=== PATIENT | female | born 1960 | race Caucasian/White ===

== ENCOUNTER → 2020-11-13 08:49 | Outpatient (CLI) | payer OTHER, SELFPAY ==
[2020-11-13 16:23] LABS: SARS-CoV-2 RNA PCR Negative
== END ==
PROVIDERS: PCP Family Medicine; Visit Provider Internal Medicine Gastroenterology
DX: Z01.812 Encounter for preprocedural laboratory examination (principal); Z20.822 Contact with and (suspected) exposure to COVID-19
CPT/HCPCS: C9803; U0003; U0005

== ENCOUNTER 2021-03-05 08:49 | Outpatient (CLI) | payer OTHER, SELFPAY ==
--- NOTE | ~2021-03-05 | MM_ITS ---
EXAMINATION: MM screening [facility] BI w linnea HISTORY: Screening mammogram TECHNIQUE: Craniocaudal and mediolateral oblique 3-D tomosynthesis images were obtained and synthetic 2-D images were generated. CAD analysis was submitted and interpreted. COMPARISON: 03/01/2017, 01/30/2016, 06/26/2014 BREAST PARENCHYMAL COMPOSITION: There are scattered areas of fibroglandular density. FINDINGS: A stable mass of the lower inner left breast is considered benign given the lack of interva l change. There is no evidence of suspicious mass, calcification, or architectural distortion to sugg est malignancy in either breast. There has been no suspicious interval change. IMPRESSION: 1. No mammographic evidence of malignancy. 2. Recommend routine screening mammography in one year. BI-RADS Category 2: Benign finding(s). Reviewed, dictated and finalized at location A.
--- NOTE | ~2021-03-05 | DEXA_ITS ---
Bone Density Report Name: Ivy Snyder Age: 60 Sex: Female Ethnicity: White Date of : 1960 Indication: hyperparathyroidism; postmenopausal Referring Provider: DANIEL NASH Study: Bone densitometry was performed. Exam Date: March 05, 2021 Accession number: [id number] Bone Density: Region BMD T-score Z-score Classification AP Spine (L1-L4) 1.004 -0.4 1.0 Normal Femoral Neck (Left) 0.730 -1.1 0.2 Osteopenia Total Hip (Left) 0.969 0.2 1.2 Normal Total Hip Bilateral Avg 0.936 -0.1 0.9 Normal Femoral Neck (Right) 0.769 -0.7 0.5 Normal Total Hip (Right) 0.902 -0.3 0.6 Normal World Health Organization criteria for BMD impression classify patients as: Normal (T-score at or above -1.0), Osteopenia (T-score between -1.0 and -2.5), or Osteoporosis (T-score at or below -2.5). 10-year Fracture Risk(1): Major Osteoporotic Fracture 6.7% Hip Fracture 0.4% Reported Risk Factors: [place] (), Neck BMD=0.730, BMI=34.3 (1) FRAX(R) Version 3.08. Fracture probability calculated for an untreated patient. Fracture probability may be lower if the patient has received treatment. Previous Exams: Region Exam Age BMD T-score BMD Change BMD Change Date g/cm2 vs Baseline vs Previous AP Spine(L1-L4) 03/05/2021 60 1.004 -0.4 -0.115(-10.3%) -0.027(-2.6%)* 06/26/2014 54 1.031 -0.1 -0.088(-7.8%)# -0.088(-7.8%)# 07/12/2012 52 1.119 0.7 Total Hip(Left) 03/05/2021 60 0.969 0.2 -0.072(-7.0%)# -0.024(-2.4%) 06/26/2014 54 0.993 0.4 -0.049(-4.7%)# -0.049(-4.7%)# 07/12/2012 52 1.042 0.8 Total Hip(Right) 03/05/2021 60 0.902 -0.3 -0.106(-10.5%) -0.067(-6.9%)* 06/26/2014 54 0.969 0.2 -0.040(-3.9%)# -0.040(-3.9%)# 07/12/2012 52 1.008 0.5 *Denotes significance at 95% confidence level, LSC for AP Spine = 0.022 g/cm2, LSC for Total Hip = 0.027 g/cm2 Clinical Information Provided by Patient: Has the following medical conditions: Hyperparathyroidism Patient maximum height was 64 Menopause Age: 52 No regular weight bearing exercise Drinks caffeinated beverages Onset of menses at age 14 Number of children 2 Impression: The patient has low bone mass, based on the Left Femoral Neck T-score. The patient has an estimated ten-year risk of hip fracture of 0.4% and an estimated ten-year risk of major fracture of 6.7%, based on the WHO FRAX algorithm. The BMD for the AP Spine(L1-L4) decreased, changing by -2.6% [facility]
== END 2021-03-05 08:50 | disposition home or self-care (01) ==
LOC: ANHIMG 08:51
PROVIDERS: PCP Family Medicine; Visit Provider Family Medicine
DX: Z12.31 Encounter for screening mammogram for malignant neoplasm of breast (principal); Z78.0 Asymptomatic menopausal state; E21.0 Primary hyperparathyroidism; M85.852 Other specified disorders of bone density and structure, left thigh
CPT/HCPCS: 77063; 77067; 77080

== ENCOUNTER 2021-06-17 00:21 | Day surgery (SDC) | payer OTHER, SELFPAY ==
[2021-05-29 11:48] VITALS: BMI 34.0
--- NOTE | 2021-06-16 16:27 | WPDANESEPPF ---
Anes - Initial Pre Proc Eval Procedure: Operation Date: 06/17/21 08:00 Proposed Procedures p Screening Colonoscopy - Chao Sales MD Date/Time: 06/16/21 16:27 Surgeon: Chao Sales MD Pre Op Diagnosis: neoplasm screening Patient Data Age: 61 Gender: F Height: 1.63 m Weight: 90 kg Allergies Allergy/AdvReac Type Severity Reaction Status Date / Time erythromycin base Allergy Unknown Nausea Verified 06/17/21 06:46 hydrochlorothiazide Allergy Unknown Skin Verified 06/17/21 06:46 Reaction loratadine Allergy Unknown alopecia Verified 06/17/21 06:46 Penicillins Allergy Unknown rash Verified 06/17/21 06:46 Home Medications Medication Instructions Recorded Confirmed Type fexofenadine 180 mg tablet 180 mg PO DAILY 09/05/19 06/17/21 History multivitamin 1 tablet PO DAILY 09/05/19 06/17/21 History omeprazole magnesium [Prilosec OTC] 20 mg PO DAILY 11/04/20 06/17/21 History biotin 10 mg PO DAILY 05/29/21 06/17/21 History calcium carbonate-vitamin D3 1 tablet PO DAILY 05/29/21 06/17/21 History [Calcium 600 with Vitamin D3] Patient hx anesthesia problems: none Family hx anesthesia problems: none Results Review: All pre-operative results and documents have been reviewed as part of the pre-operative evaluation. [facility] Past Medical History Medical History (Updated 06/16/21 @ 16:28 by Justin Doyle MD) Class 1 obesity with body mass index (BMI) of 33.0 to 33.9 in adult Coital headache Degenerative disc disease, cervical Depressive disorder Diffuse cystic mastopathy of both breasts FH: colon cancer in first degree relative <60 years old Ganglion cyst (~1982) left hand Intervertebral disc disorder with myelopathy, cervical region Leiomyoma of uterus, unspecified Normal colonoscopy 2012 normal. fam hx colon cancer. repeat in 8 years/ shreya Normal stress echocardiogram 2011 Osteopenia Bone Density:7.14.21 Femoral Neck (Left) -1.1 Osteopenia Other internal derangements of left knee Papillomavirus as the cause of diseases classified elsewhere 2016 ascus/ hpv + Primary hyperparathyroidism 2013 mri neck neg 2018 MRI head normal 2014 scan: neg consultation 2016 Raynauds syndrome Unilateral primary osteoarthritis, left hip Unilateral primary osteoarthritis, right hip Surgical History Surgical History History of tonsillectomy Family History Family History Grandparent Family history of transient ischemic attacks Carcinoma of colon Family history of lung cancer Family history of malignant neoplasm of breast Father Family history of cardiovascular disease Family history of Parkinson's disease Other Family history of malignant neoplasm of ovary Social History Social History Smoking packs per day: 1 Smoking cigarettes per day: 20.0 Years smoked: 4 Smoking pack-years: 4.00 Tobacco type: cigarettes Smoking end date: 08/23/85 Alcohol intake: never Substance use type: does not use Spiritual care concerns: No Anes - Eval Final PreProcedure Day of Procedure 06/16/21 16:27 Patient weight: obese Heart: regular rate and rhythm Lungs: clear to auscultation and normal air movement Airway: Mallampati scale class II Neurological: alert and oriented Last oral intake: >/= 8 hours ASA classification: II Emergent: no Anesthetic plan: proceed Anesthesia type and monitoring: general GIVS Results Review: All pre-operative results and documents have been reviewed as part of the pre-operative evaluation. Informed Consent: The patient's anesthetic plan and its attendant risks and benefits were discussed with the patient/family/POA. Questions were solicited and answers provided to the satisfaction of the patient/family/POA.
[2021-06-17 06:32] VITALS: BP 137/70; PULSE 81; RESP 16; TEMP 36.6; O2SAT 97; BMI 33.5
[2021-06-17] MEDS: LACTATED RINGERS 1,000 ML 150 ML IV CONT (07:29)
--- NOTE | 2021-06-17 07:55 | PM.HPGS ---
History of Present Illness History of Present Illness Consent: Risks, benefits, and alternatives have been discussed and questions answered. Patient agrees to proceed with procedure. Chief complaint: neoplasm screening Narrative: Ivy Snyder is a 61 year old female with last colonoscopy 10 years ago. Review of Systems Constitutional: Constitutional: Denies headache(s) and Denies weakness Eyes: Eyes: Denies blurry vision ENT: Reports Normal hearing present, Denies headache(s) and Denies neck pain Cardiovascular: Cardiovascular: Denies chest pain and Denies dyspnea Respiratory: Respiratory: Denies dyspnea Gastrointestinal: Gastrointestinal: Reports no additional gastrointestinal complaints Genitourinary: Genitourinary: Denies dysuria Musculoskeletal: Musculoskeletal: Denies neck pain Integumentary/Breasts: Skin/Breast: Denies dry skin Neurologic: Reports Normal hearing present, Denies headache(s) and Denies weakness Psychiatric: Psychiatric: Denies anxiety Endocrine: Endocrine: Denies change in body appearance Hematologic/Lymphatic: Hematologic/Lymphatic: Denies easy bleeding Allergic/Immunologic: Allergic/Immunologic: Denies urticaria PMF Past Medical History Medical History (Updated 06/17/21 @ 07:55 by Chao Sales MD) Class 1 obesity with body mass index (BMI) of 33.0 to 33.9 in adult Coital headache Colon cancer screening Degenerative disc disease, cervical Depressive disorder Diffuse cystic mastopathy of both breasts FH: colon cancer in first degree relative <60 years old Ganglion cyst (~1982) left hand Intervertebral disc disorder with myelopathy, cervical region Leiomyoma of uterus, unspecified Normal colonoscopy 2012 normal. fam hx colon cancer. repeat in 8 years/ shreya Normal stress echocardiogram 2012 Osteopenia Bone Density:7.14.21 Femoral Neck (Left) -1.1 Osteopenia Other internal derangements of left knee Papillomavirus as the cause of diseases classified elsewhere 2016 ascus/ hpv + Primary hyperparathyroidism 2013 mri neck neg 2018 MRI head normal 2014 scan: neg consultation 2016 Raynauds syndrome Unilateral primary osteoarthritis, left hip Unilateral primary osteoarthritis, right hip Surgical History Surgical History History of tonsillectomy Family History Family History Grandparent Family history of transient ischemic attacks Carcinoma of colon Family history of lung cancer Family history of malignant neoplasm of breast Father Family history of cardiovascular disease Family history of Parkinson's disease Other Family history of malignant neoplasm of ovary Social History Social History Smoking packs per day: 1 Smoking cigarettes per day: 20.0 Years smoked: 4 Smoking pack-years: 4.00 Tobacco type: cigarettes Smoking end date: 08/23/85 Alcohol intake: never Substance use type: does not use Spiritual care concerns: No Meds Home Medications and Allergies Home Medications Medication Instructions Recorded Confirmed Type fexofenadine 180 mg tablet 180 mg PO DAILY 09/05/19 06/17/21 History multivitamin 1 tablet PO DAILY 09/05/19 06/17/21 History omeprazole magnesium [Prilosec OTC] 20 mg PO DAILY 11/04/20 06/17/21 History biotin 10 mg PO DAILY 05/29/21 06/17/21 History calcium carbonate-vitamin D3 1 tablet PO DAILY 05/29/21 06/17/21 History [Calcium 600 with Vitamin D3] Allergies Allergy/AdvReac Type Severity Reaction Status Date / Time erythromycin base Allergy Unknown Nausea Verified 06/17/21 06:46 hydrochlorothiazide Allergy Unknown Skin Verified 06/17/21 06:46 Reaction loratadine Allergy Unknown alopecia Verified 06/17/21 06:46 Penicillins Allergy Unknown rash Verified 06/17/21 06:46 Vital Signs Vital Signs - 24 hr 06/17/21
[2021-06-17 08:20] VITALS: BP 108/49; PULSE 68; RESP 16; O2SAT 100
[2021-06-17 08:30] VITALS: BP 115/54; PULSE 68; RESP 17; O2SAT 100
== END 2021-06-17 08:54 | disposition home or self-care (01) ==
PROVIDERS: PCP Family Medicine; Visit Provider Internal Medicine Gastroenterology
PROC: 0DJD8ZZ Inspection of Lower Intestinal Tract, Via Natural or Artificial Opening Endoscopic (ICD-10-PCS; CPT 45378; principal; 2021-06-17 08:00)
DX: Z12.11 Encounter for screening for malignant neoplasm of colon (principal); E21.0 Primary hyperparathyroidism; M85.80 Other specified disorders of bone density and structure, unspecified site; Z87.891 Personal history of nicotine dependence; E66.9 Obesity, unspecified; Z68.33 Body mass index [BMI] 33.0-33.9, adult
CPT/HCPCS: 45378; J2001; J2704; J7120

== ENCOUNTER 2022-03-23 07:53 | Outpatient (CLI) | payer OTHER, SELFPAY ==
--- NOTE | ~2022-03-23 | MM_ITS ---
EXAMINATION: MM screening [facility] BI w linnea HISTORY: Screening TECHNIQUE: Craniocaudal and mediolateral oblique 3-D tomosynthesis images were obtained and synthetic 2-D images were generated. CAD analysis was submitted and interpreted. COMPARISON: Comparison to multiple prior studies sequentially, with oldest reviewed study dated 05/08. BREAST PARENCHYMAL COMPOSITION: Breast composed of scattered areas of fibroglandular density FINDINGS: Slightly increased size of mass in the lower inner quadrant of the left breast, middle thir d. Although this is likely benign, follow-up evaluation recommended. The right breast is stable witho ut evidence for malignancy. IMPRESSION: 1. Developing left breast mass, lower inner quadrant. 2. Additional spot compression and mediolateral views with possible follow-up breast ultrasound recom mended. BI-RADS Category 0: Incomplete: Needs additional imaging evaluation. Reviewed, dictated and finalized at location A. IMPRESSION: 1. Developing left breast mass, lower inner quadrant. 2. Additional spot compression and mediolateral views with possible follow-up b reast ultrasound recommended. BI-RADS Category 0: Incomplete: Needs additional imaging evaluation.
== END 2022-03-23 07:54 | disposition home or self-care (01) ==
LOC: ANHIMG 07:55
PROVIDERS: PCP Family Medicine; Visit Provider Family Medicine
DX: Z12.31 Encounter for screening mammogram for malignant neoplasm of breast (principal); R92.8 Other abnormal and inconclusive findings on diagnostic imaging of breast
CPT/HCPCS: 77063; 77067

== ENCOUNTER 2022-04-01 12:49 | Outpatient (CLI) | payer OTHER, SELFPAY ==
--- NOTE | ~2022-04-01 | MMUS_ITS ---
EXAMINATION: MM diagnostic [facility] LT w linnea, US breast LT limited HISTORY: Left breast mass on screening mammogram TECHNIQUE: Additional 3-D tomosynthesis images of the left breast were performed and synthetic 2-D im ages were generated. CAD analysis was submitted and interpreted. High resolution limited left breast ultrasound was performed. COMPARISON: 03/23/2022 03/05/2021, 03/01/2017 FINDINGS: MAMMOGRAPHIC FINDINGS: There is a 7 mm round, circumscribed, equal density mass in the middle third lower inner breast at th e 7:00 location 5 cm from the nipple. No suspicious calcification or architectural distortion are edenilson ntified. ULTRASOUND: There is a 7 mm cyst at the 7:00 location 2 cm from the nipple corresponding to the mammographic find ing in question. IMPRESSION: 1. No mammographic or sonographic evidence of malignancy. 2. Recommend routine screening mammography in one year. BI-RADS Category 2: Benign finding(s). Reviewed, dictated and finalized at location A. IMPRESSION: 1. No mammographic or sonographic evidence of malignancy. 2. Recommend routine screening mammography in one year. BI-RADS Category 2: Benign finding(s).
== END 2022-04-01 12:50 | disposition home or self-care (01) ==
PROVIDERS: PCP Family Medicine; Visit Provider Family Medicine
DX: R92.8 Other abnormal and inconclusive findings on diagnostic imaging of breast (principal); N63.24 Unspecified lump in the left breast, lower inner quadrant
CPT/HCPCS: 76642; 77061; 77065; G0279

== ENCOUNTER 2023-06-07 07:42 | Outpatient (CLI) | payer OTHER, SELFPAY ==
--- NOTE | ~2023-06-07 | NM_ITS ---
EXAMINATION: NM parathyroid w imaging DATE: 06/07/2023 11:40 INDICATION: Parathyroid adenoma TECHNIQUE: 20 mCi Tc99m tetrofosmin (Myoview) was administered by intravenous route. Anterior images of the neck were obtained at 10 minutes and 4 hours. COMPARISON: 05/08/2013 FINDINGS/IMPRESSION: There is no focus of persistent activity in the area of the thyroid or mediastinum to suggest parathy roid adenoma. Reviewed, dictated and finalized at location A.
== END 2023-06-07 07:43 | disposition home or self-care (01) ==
PROVIDERS: PCP Family Medicine; Visit Provider Internal Medicine Endocrinology, Diabetes & Metabolism
DX: E21.0 Primary hyperparathyroidism (principal)
CPT/HCPCS: 78070; A9500

== ENCOUNTER 2023-07-05 09:41 | Outpatient (CLI) | payer OTHER, SELFPAY ==
--- NOTE | ~2023-07-05 | MM_ITS ---
EXAMINATION: MM screening [facility] BI w linnea HISTORY: Screening mammogram TECHNIQUE: Craniocaudal and mediolateral oblique 3-D tomosynthesis images were obtained and synthetic 2-D images were generated. CAD analysis was submitted and interpreted. COMPARISON: 04/01/2022, 03/23/2022, 03/05/2021, 03/01/2017 BREAST PARENCHYMAL COMPOSITION: There are scattered areas of fibroglandular density. FINDINGS: No suspicious mass, calcification, or architectural distortion are identified in either jamie ast to suggest malignancy. There has been no suspicious interval change. IMPRESSION: 1. No mammographic evidence of malignancy. 2. Recommend routine screening mammography in one year. BI-RADS Category 1: Negative Reviewed, dictated and finalized at location A. [employer]
--- NOTE | ~2023-07-05 | DEXA_ITS ---
Bone Density Report Name: RAMA TOBIAS Age: 63 Sex: Female Ethnicity: White Date of : 1960 Indication: hyperparathyroidism; postmenopausal Referring Provider: DANIEL NASH Study: Bone densitometry was performed. Exam Date: July 05, 2023 Accession number: [id number] Bone Density: Region BMD T-score Z-score Classification AP Spine(L1-L4) 1.054 0.1 1.6 Normal Femoral Neck (Left) 0.746 -0.9 0.4 Normal Total Hip (Left) 0.933 -0.1 1.0 Normal Femoral Neck (Right) 0.772 -0.7 0.7 Normal Total Hip (Right) 0.928 -0.1 0.9 Normal Total Hip Mean 0.930 -0.1 1.0 Normal World Health Organization criteria for BMD impression classify patients as: Normal (T-score at or above -1.0), Osteopenia (T-score between -1.0 and -2.5), or Osteoporosis (T-score at or below -2.5). 10-year Fracture Risk: FRAX not reported because: All T-scores for Spine Total, Hip Total, Femoral Neck at or above -1.0 Previous Exams: Region Exam Age BMD T-score BMD Change BMD Change Date g/cm2 vs Baseline vs Previous AP Spine (L1-L4) 07/05/2023 63 1.054 0.1 0.050 (5.0%)* 0.050 (5.0%)* 03/05/2021 60 1.004 -0.4 Total Hip(Left) 07/05/2023 63 0.933 -0.1 -0.037 (-3.8%) -0.037 (-3.8%) 03/05/2021 60 0.969 0.2 Total Hip(Right) 07/05/2023 63 0.928 -0.1 0.026 (2.9%) 0.026 (2.9%) 03/05/2021 60 0.902 -0.3 *Denotes significance at 95% confidence level, LSC for AP Spine = 0.022 g/cm2, LSC for Total Hip = 0.027 g/cm2 Clinical Information Provided by Patient: Has used the following medications: Vitamin D Has the following medical conditions: Hyperparathyroidism Patient maximum height was 64 Menopause Age: 52 Drinks caffeinated beverages Onset of menses at age 14 Number of children 2 Impression: The patient has normal bone mass. The BMD for the Total Hip(Left) decreased, changing by -3.8% since the last DXA exam. Discussion: BONE DENSITY IS ABOVE THE MINIMUM DESIRABLE LEVEL AT ALL SKELETAL SITES TESTED. This patient?s bone mineral density is above the minimum desirable level (T-score -1.0 or better) at all sites measured. The patient should follow a healthful lifestyle (good nutrition with adequate calcium and vitamin D, and appropriate weight-bearing exercise). Follow-Up: Consider repeating this study in 3 to 4 years to reassess this patient's status, or sooner if there is some new clinical indication. Reported by: [facility] on 06/23
== END 2023-07-05 09:42 | disposition home or self-care (01) ==
PROVIDERS: PCP Family Medicine; Visit Provider Internal Medicine Endocrinology, Diabetes & Metabolism
DX: Z12.31 Encounter for screening mammogram for malignant neoplasm of breast (principal); E21.0 Primary hyperparathyroidism; M85.80 Other specified disorders of bone density and structure, unspecified site
CPT/HCPCS: 77063; 77067; 77080

== ENCOUNTER 2023-12-30 09:40 | Outpatient (CLI) | payer OTHER, SELFPAY ==
--- NOTE | 2023-12-30 09:44 | EST_ITS ---
Patient Info Name: Ivy Snyder Age: 63 years : 1960 Gender: Female Ht: 64 in Wt: 190 lbs BSA: 2.01 m2 HR: 63 bpm BP: 140 / 67 mmHg Heart Rhythm: Sinus Rhythm Exam Date: 12/30/2023 9:56 AM Exam Location: Echo Lab Patient Status: Outpatient Admit Date: 12/30/2023 Staff Ordering Physician: Carmella Gunderson MD Attending Provider: Carmella Gunderson MD Exercise Technologist: Meche Kuhn CT Exercise Physician: Bernardo Carrillo DO Exam Type: CA stress test treadmill Study Info Indications R07.89 - Other chest pain A treadmill exercise stress test was performed. Summary 1. 1. Abnormal Zechariah exercise stress test for ischemic ST changes by ECG criteria. 2. 2. Reduced functional capacity, achieving 7 METs of workload. 3. 3. Baseline hypertension. 4. 4. Appropriate HR response to exercise. 5. 5. Appropriate HR recovery at 1 minute post exercise. 6. 6. No imaging with stress testing. 7. 7. Patient informed of the above results. Protocol: Zechariah Stress ECG Details Stage: REST Duration (min): 1 min : 14 sec Speed (mph): 0.0 Grade (%): 0 HR (bpm): 64 SBP (mmHg): 140 DBP (mmHg): 67 METS: --- Stage: REST Duration (min): 6 min : 22 sec Speed (mph): 0.0 Grade (%): 0 HR (bpm): 70 SBP (mmHg): 140 DBP (mmHg): 67 METS: --- Stage: STAGE 1 Duration (min): 1 min : 0 sec Speed (mph): 1.7 Grade (%): 10 HR (bpm): 119 SBP (mmHg): 140 DBP (mmHg): 67 METS: --- Stage: STAGE 1 Duration (min): 2 min : 0 sec Speed (mph): 1.7 Grade (%): 10 HR (bpm): 132 SBP (mmHg): 140 DBP (mmHg): 67 METS: --- Stage: STAGE 1 Duration (min): 3 min : 0 sec Speed (mph): 1.7 Grade (%): 10 HR (bpm): 139 SBP (mmHg): 190 DBP (mmHg): 58 METS: --- Stage: STAGE 2 Duration (min): 1 min : 0 sec Speed (mph): 2.5 Grade (%): 12 HR (bpm): 154 SBP (mmHg): 190 DBP (mmHg): 58 METS: --- Stage: STAGE 2 Duration (min): 1 min : 43 sec Speed (mph): 2.5 Grade (%): 12 HR (bpm): 156 SBP (mmHg): 190 DBP (mmHg): 58 METS: --- Stage: RECOVERY Duration (min): 0 min : 16 sec Speed (mph): 0.0 Grade (%): 0 HR (bpm): 149 SBP (mmHg): 201 DBP (mmHg): 81 METS: --- Stage: RECOVERY Duration (min): 1 min : 16 sec Speed (mph): 0.0 Grade (%): 0 HR (bpm): 105 SBP (mmHg): 201 DBP (mmHg): 81 METS: --- Stage: RECOVERY Duration (min): 2 min : 16 sec Speed (mph): 0.0 Grade (%): 0 HR (bpm): 75 SBP (mmHg): 201 DBP (mmHg): 81 METS: --- Stage: RECOVERY Duration (min): 3 min : 16 sec Speed (mph): 0.0 Grade (%): 0 HR (bpm): 76 SBP (mmHg): 182 DBP (mmHg): 71 METS: --- Stage: RECOVERY Duration (min): 3 min : 53 sec Speed (mph): 0.0 Grade (%): 0 HR (bpm): 80 SBP (mmHg): 182 DBP (mmHg): 71 METS: --- Rest HR: 70 bpm Peak HR: 157 bpm Rest Sys BP: 140 mmHg Peak Sys BP: 201 mmHg Max Pred HR: 158 bpm % Max Pred HR: 99 % Ta
== END 2023-12-30 09:41 | disposition home or self-care (01) ==
PROVIDERS: PCP Family Medicine; Visit Provider Family Medicine
DX: R07.89 Other chest pain (principal); I10 Essential (primary) hypertension
CPT/HCPCS: 93017

== ENCOUNTER 2024-04-27 02:20 | Day surgery (SDC) | payer OTHER, SELFPAY ==
[2024-04-05 08:53] VITALS: BMI 33.5
[2024-04-27 07:19] VITALS: BP 121/68; PULSE 74; RESP 20; TEMP 36; O2SAT 99
[2024-04-27] MEDS: LACTATED RINGERS 1,000 ML 150 ML IV CONT (07:36)
--- NOTE | 2024-04-27 07:51 | WPDANESEPPF ---
Anes - Initial Pre Proc Eval Procedure: Operation Date: 04/27/24 08:00 Proposed Procedures p Esophagogastroduodenoscopy - Chao Sales MD Date/Time: 04/27/24 07:51 Surgeon: Chao Sales MD Pre Op Diagnosis: GERD without esophagitis Patient Data Age: 63 Gender: F Height: 1.63 m Weight: 89.6 kg Last Vital Signs Temp 96.8 F L 04/27/24 07:19 Pulse 74 04/27/24 07:19 Resp 20 04/27/24 07:19 BP 121/68 04/27/24 07:19 Pulse Ox 99 04/27/24 07:19 O2 Del Method Room Air 04/27/24 07:19 Allergies Allergy/AdvReac Type Severity Reaction Status Date / Time erythromycin base Allergy Unknown Nausea Verified 04/27/24 07:17 hydrochlorothiazide Allergy Unknown Skin Verified 04/27/24 07:17 Reaction loratadine Allergy Unknown alopecia Verified 04/27/24 07:17 Penicillins Allergy Unknown rash Verified 04/27/24 07:17 Home Medications Medication Instructions Recorded Confirmed Type fexofenadine 180 mg tablet 180 mg PO DAILY 09/05/19 04/27/24 History (Cathy Allergy) cholecalciferol (vitamin D3) 50 50 mcg PO DAILY 09/14/23 04/27/24 History mcg (2,000 unit) capsule aspirin 81 mg tablet,delayed 81 mg PO DAILY #60 tabs 12/30/23 04/27/24 Rx release (Adult Low Dose Aspirin) omeprazole 40 mg capsule,delayed 40 mg PO DAILY #90 caps 01/11/24 04/27/24 Rx release atorvastatin 10 mg tablet 10 mg PO DAILY #90 tabs 02/22/24 04/27/24 Rx metoprolol tartrate 25 mg tablet 25 mg PO BID #180 tabs 02/22/24 04/27/24 Rx Patient hx anesthesia problems: none Family hx anesthesia problems: none Results Review: All pre-operative results and documents have been reviewed as part of the pre-operative evaluation. [facility] Past Medical History Medical History Coital headache Degenerative disc disease, cervical Depressive disorder Diffuse cystic mastopathy of both breasts FH: colon cancer in first degree relative <60 years old Ganglion cyst (~1982) left hand Intervertebral disc disorder with myelopathy, cervical region Leiomyoma of uterus, unspecified Normal colonoscopy 2012 normal. fam hx colon cancer. repeat in 8 years/ shreya Normal stress echocardiogram 2011 Osteopenia 2022 bone density normal 2020 Bone Density: Femoral Neck (Left) -1.1 Osteopenia, Other internal derangements of left knee Papillomavirus as the cause of diseases classified elsewhere 2016 ascus/ hpv + Primary hyperparathyroidism 2013 mri neck neg 2018 MRI head normal 2014 scan: neg consultation 2016 Raynauds syndrome Unilateral primary osteoarthritis, left hip Unilateral primary osteoarthritis, right hip Surgical History Surgical History History of tonsillectomy Family History Family History Grandparent Family history of transient ischemic attacks Carcinoma of colon Family history of lung cancer Family history of malignant neoplasm of breast Father Family history of cardiovascular disease Family history of Parkinson's disease Other Family history of malignant neoplasm of ovary Social History Social History Social History: Caffeine-1 cup daily Smoking packs per day: 1 Smoking cigarettes per day: 20.0 Years smoked: 4 Smoking pack-years: 4.00 Smoking status: Former smoker Tobacco type: cigarettes Smoking end date: 08/23/85 Alcohol intake: never Substance use: never Substance use type: does not use Do You Feel Safe in your Home?: Yes Lack of Transportation: No Lack of Food: Never True Current Housing: I Have Housing Concerned About Future Housing: No Difficulty Paying Gas/Electric Bills: No Difficulty Paying for Meds: No Currently Unemployed: No Education: Master's Degree or Higher Difficulty w/ Childcare or Famil
--- NOTE | 2024-04-27 08:14 | PM.HPGS ---
History of Present Illness History of Present Illness Consent: Risks, benefits, and alternatives have been discussed and questions answered. Patient agrees to proceed with procedure. Chief complaint: GERD without esophagitis Narrative: Ivy Snyder is a 63 year old female here for first EGD, h/o of long-standing GERD being on omeprazole for over 10 years, Review of Systems Review of Systems: All systems reviewed & are unremarkable except as noted in HPI and below PMFSH Past Medical History Medical History Coital headache Degenerative disc disease, cervical Depressive disorder Diffuse cystic mastopathy of both breasts FH: colon cancer in first degree relative <60 years old Ganglion cyst (~1982) left hand Intervertebral disc disorder with myelopathy, cervical region Leiomyoma of uterus, unspecified Normal colonoscopy 2012 normal. fam hx colon cancer. repeat in 8 years/ shreya Normal stress echocardiogram 2011 Osteopenia 2022 bone density normal 2020 Bone Density: Femoral Neck (Left) -1.1 Osteopenia, Other internal derangements of left knee Papillomavirus as the cause of diseases classified elsewhere 2016 ascus/ hpv + Primary hyperparathyroidism 2013 mri neck neg 2018 MRI head normal 2014 scan: neg consultation 2016 Raynauds syndrome Unilateral primary osteoarthritis, left hip Unilateral primary osteoarthritis, right hip Surgical History Surgical History History of tonsillectomy Family History Family History Grandparent Family history of transient ischemic attacks Carcinoma of colon Family history of lung cancer Family history of malignant neoplasm of breast Father Family history of cardiovascular disease Family history of Parkinson's disease Other Family history of malignant neoplasm of ovary Social History Social History Social History: Caffeine-1 cup daily Smoking packs per day: 1 Smoking cigarettes per day: 20.0 Years smoked: 4 Smoking pack-years: 4.00 Smoking status: Former smoker Tobacco type: cigarettes Smoking end date: 08/23/85 Alcohol intake: never Substance use: never Substance use type: does not use Do You Feel Safe in your Home?: Yes Lack of Transportation: No Lack of Food: Never True Current Housing: I Have Housing Concerned About Future Housing: No Difficulty Paying Gas/Electric Bills: No Difficulty Paying for Meds: No Currently Unemployed: No Education: Master's Degree or Higher Difficulty w/ Childcare or Family Care: No Living arrangements: with family Spiritual care concerns: No Meds Home Medications and Allergies Home Medications Medication Instructions Recorded Confirmed Type fexofenadine 180 mg tablet 180 mg PO DAILY 09/05/19 04/27/24 History (Cathy Allergy) cholecalciferol (vitamin D3) 50 50 mcg PO DAILY 09/14/23 04/27/24 History mcg (2,000 unit) capsule aspirin 81 mg tablet,delayed 81 mg PO DAILY #60 tabs 12/30/23 04/27/24 Rx release (Adult Low Dose Aspirin) omeprazole 40 mg capsule,delayed 40 mg PO DAILY #90 caps 01/11/24 04/27/24 Rx release atorvastatin 10 mg tablet 10 mg PO DAILY #90 tabs 02/22/24 04/27/24 Rx metoprolol tartrate 25 mg tablet 25 mg PO BID #180 tabs 02/22/24 04/27/24 Rx Allergies Allergy/AdvReac Type Severity Reaction Status Date / Time erythromycin base Allergy Unknown Nausea Verified 04/27/24 07:17 hydrochlorothiazide Allergy Unknown Skin Verified 04/27/24 07:17 Reaction loratadine Allergy Unknown alopecia Verified 04/27/24 07:17 Penicillins Allergy Unknown rash Verified 04/27/24 07:17 Vital Signs Vital Signs - 24 hr 04/27/24 07:19 Temperature 96.8 F L Pulse Rate 74 Respiratory Rate 20 Blood Pressure 121/68 Pulse Oximet
[2024-04-27 08:26] VITALS: BP 116/64; PULSE 71; RESP 21; O2SAT 95
[2024-04-27 08:36] VITALS: BP 117/78; PULSE 69; RESP 22; O2SAT 97
[2024-04-27 08:46] VITALS: BP 112/64; PULSE 61; RESP 20; O2SAT 99
== END 2024-04-27 09:00 | disposition home or self-care (01) ==
PROVIDERS: PCP Family Medicine; Referring Provider Nurse Practitioner Family; Visit Provider Internal Medicine Gastroenterology
PROC: 0DJ08ZZ Inspection of Upper Intestinal Tract, Via Natural or Artificial Opening Endoscopic (ICD-10-PCS; CPT 43235; principal; 2024-04-27 08:00)
DX: K29.50 Unspecified chronic gastritis without bleeding (principal); K21.9 Gastro-esophageal reflux disease without esophagitis; M50.30 Other cervical disc degeneration, unspecified cervical region; F32.A Depression, unspecified; M85.89 Other specified disorders of bone density and structure, multiple sites; E21.3 Hyperparathyroidism, unspecified; I73.00 Raynaud's syndrome without gangrene; M16.0 Bilateral primary osteoarthritis of hip; Z79.82 Long term (current) use of aspirin; Z87.891 Personal history of nicotine dependence; Z80.0 Family history of malignant neoplasm of digestive organs; Z80.1 Family history of malignant neoplasm of trachea, bronchus and lung; Z80.3 Family history of malignant neoplasm of breast; Z80.41 Family history of malignant neoplasm of ovary; Z82.49 Family history of ischemic heart disease and other diseases of the circulatory system
CPT/HCPCS: 43239; 88305; J2704; J7120

== ENCOUNTER 2024-08-15 07:28 | Outpatient (CLI) | payer OTHER, SELFPAY ==
--- NOTE | ~2024-08-15 | MM_ITS ---
EXAMINATION: MM screening emir BI w linnea HISTORY: Screening TECHNIQUE: Craniocaudal and mediolateral oblique 3-D tomosynthesis images were obtained and synthetic 2-D images were generated. CAD analysis was submitted and interpreted. COMPARISON: 07/05/2023 and dating back to 03/01/2017 BREAST PARENCHYMAL COMPOSITION: There are scattered areas of fibroglandular density. FINDINGS: Calcifications detected bilaterally, stable and benign in appearance. Stable parenchymal pattern without suspicious microcalcifications, architectural distortion, discrete masses or significant asymmetry. IMPRESSION: 1. No mammographic evidence of malignancy. 2. Recommend routine screening mammography in one year. BI-RADS Category 2: Benign finding(s). Reviewed, dictated and finalized at location A. EY DRIVER
--- OUTSIDE RECORDS SUMMARY | 2024-08-22 05:16 | XMS_ITS | Encounter Summary ---
Author Organization [facility] Care Team Providers Care Wheel Cleaner Name Role Phone Unavailable Primary Care Provider Unavailabl e Encounter Details Date Type Department Care Team (Latest Contact Info) Description 09/17/2015 4:02 PM FERMENTING CELLARS SUPERVISOR - 09/17/2015 11:59 PM FERMENTING CELLARS SUPERVISOR Hospital Encounter [facility] Kely Pascal MD [address] [facility] [address] [place] [address] Primary hyperparathyroidism (CMS/HCC); Other fatigue; Hyperglycemia Social History Tobacco Use Types Packs/Day Years Used Date Smoking Tobacco: Never Assessed Comments Unknown Sex and Gender Information Value Date Recorded Sex Assigned at Not on file Legal Sex Female 2:16 AM FERMENTING CELLARS SUPERVISOR Gender Identity Not on file Sexual Orientation Not on file documented as of this encounter Plan of Treatment Upcoming Encounters Date Type Department Care Team (Late st Contact Info) Description 09/08/2024 10:25 AM FERMENTING CELLARS SUPERVISOR Hospital Encounter [facility] [address] [place] [id number] Dionisio Duran MD [address] [facility] [place] [address] 09/08/2024 10:25 AM FERMENTING CELLARS SUPERVISOR - 09/08/2024 1:00 PM FERMENTING CELLARS SUPERVISOR Surgery [facility]) [address] [place] [address] Dionisio Duran MD [address] [facility] [place] [address] PARATHYROIDECTOMY Scheduled Procedures Name Priority Associated Diagnoses Date/Ti me PARATHYROIDECTOMY HPTH (hyperparathyroidism) ([facility]) 09/08/2024 10:25 AM FERMENTING CELLARS SUPERVISOR EXPLORATION PARATHYROID HPTH (hyperparathyroidism) ([facility]) 09/08/2024 10:25 AM FERMENTING CELLARS SUPERVISOR documented as of this encounter Procedures Procedure Name Priority Date/Time Associated Diagnosis Comments ELECTROCARDIOGRAPHY (ECG) 09/17/2015 documented in this encounter Results * ELECTROCARDIOGRAPHY (ECG) (09/17/2015) Narrative 09/17/2015 Ordered by an unspecified provider. Historical Provider ECG ORDERABLES Final Res ult documented in this encounter Visit Diagnoses Diagnosis Primary hyperparathyroidism (HCC) Primary hyperparathyroidism Other fatigue Hyperglycemia Other abnormal glucose HPTH (hyperparathyroidism) (HCC) Hyperparathyroidism, unspecified documented in this encounter
--- OUTSIDE RECORDS SUMMARY | 2024-08-22 05:16 | XMS_ITS | Continuity of Care Document ---
Author Organization [facility] Address [id number] [place] [address] [facility] [address] [place] [address] Phone Care Team Providers Care Package Maker Name Role Phone Rusty Otero DO Unavailable Unavailable Advance Directives Directive Yes / No Effective Date File Name No Information Encounters Encounter Description Practice Location Reason(s) For Visit Diagnoses Date Provider Providers Copied on Encounter [facility], [address] [place], [place], [id number], [place] tel:[phone] [facility] No Information Branden Valenzuela. [address] [place], [address], [place]. tel: [phone] Family History Family Member Type Diagnosis Age At Onset No Information Payers Payer name Insurance type Covered libertarian ID Authoriza tion(s) No Information Social History Type Description Quantity Date Captured Comments Sex Female Smoking Status No Information Chief Complaint And Reason For Visit No Information Reason For Referral Reason For Referral No Information History Of Present Illness Encounter Date Complaint History Of Prese nt Illness No Information Functional Status Date Functional Assessmen t No Information Instructions Date Instruction Additional Infor mation No Information Assessments Type Assessment Date No Information Patient Care Teams Name Effective Dates (start - stop) Status Members No Information
--- OUTSIDE RECORDS SUMMARY | 2024-08-22 05:16 | XMS_ITS | Encounter Summary ---
Author Organization [facility] Address [address] [place] [address] Care Team Providers Care Mop Handle Assembler Name Role Phone Carmella Gunderson MD Primary Care Provider + Swati Hayward MD Unavailable [phone] Reason for Referral * Diagnostic Imaging (Routine) - Closed Specialty Diagnoses / Procedures Referred By Contac t Referred To Contact Diagnoses Primary hyperparathyroidism (HCC) Procedures US Soft Tissue Neck Dionisio Duran MD [address] [place] [address] Phone: tel: fax: [address] [phone] Referral ID Status Reason Start Date Expiration Date Visits Re quested Visits Authorized [id number] Closed 06/01/2024 07/01/2025 1 1 PROCUREMENT COORDINATOR Reason for Visit * Diagnostic Imaging (Routine) - Closed Specialty Diagnoses / Procedures Referred By Contac t Referred To Contact Diagnoses Primary hyperparathyroidism (HCC) Procedures US Soft Tissue Neck Dionisio Duran MD [address] [place] [address] Phone: tel: fax: [address] [phone] Referral ID Status Reason Start Date Expiration Date Visits Re quested Visits Authorized [id number] Closed 06/01/2024 07/01/2025 1 1 Encounter Details Date Type Department Care Team (Latest Contact Info) Description 07/13/2024 11:00 AM TOOL PROCUREMENT COORDINATOR - 07/13/2024 11:59 PM TOOL PROCUREMENT COORDINATOR Hospital Encounter [facility]) [address] [place] [address] Primary hyperparathyroidism (HCC) Discharge Disposition: Discharge to home or self care Social History Tobacco Use Types Packs/Day Years Used Date Smoking Tobacco: Never Passive Smoke Exposure: Never Comments Unknown Sex and Gender Information Value Date Recorded Sex Assigned at Not on file Legal Sex Female 2:16 AM TOOL PROCUREMENT COORDINATOR Gender Identity Not on file Sexual Orientation Not on file documented as of this encounter Medications at Time of Discharge aspirin 81 mg chewable tabletIndications:Christiano cardial Reinfarction Prevention Take 1 tablet (81 mg total) by mouth nightly atorvastatin (LIPITOR) 10 mg tabletIndications:hyp erlipidemia Take 1 tablet (10 mg total) by mouth every evening cholecalciferol (VITAMIN D-3) 2000 unit tablet Take 1 tablet (2,000 Units total) by mouth every morning fexofenadine (KALYANI) 180 mg tabletIndications:All ergic Rhinitis Take 1 tablet (180 mg total) by mouth every morning metoprolol tartrate (LOPRESSOR) 25 mg immediate release tabletIndications:hyp ertension Take 1 tablet (25 mg total) by mouth 2 (two) times a day 4 omeprazole (PriLOSEC) 40 mg capsuleIndications:Sy mptomatic Gastroesophageal Reflux Disease Take 1 capsule (40 mg total) by mouth every morning 4 polyvinyl alcohol-povidone (REFRESH CLASSIC) 1.4-0.6 % dropperette Administer 1 drop into both eyes daily as needed for dry eyes vitamin D3-vitamin K2 25 mcg (1,000 unit)-90 mcg tablet,disintegrating Take by mouth 08/17/20 24 documented as of this encounter Discharge Disposition Disposition Code Departure Means Destination Discharge to home or self care documented in this encounter Plan of Treatment Upcoming Encounters Date Type Department Care Team (Late st Contact Info) Description 09/08/2024 10:25 AM TOOL PROCUREMENT COORDINATOR Hospital Encounter [facility]) [address] [place] [address] Dionisio Duran MD [address] [place] [address] 09/08/2024 10:25 AM TOOL PROCUREMENT COORDINATOR - 09/08/2024 1:00 PM TOOL PROCUREMENT COORDINATOR Surgery [facility] [place] [facility]) [address] [place] [address] Dionisio Duran MD [address] [place] [address] PARATHYROIDECTOMY Scheduled Procedures Name Priority Associated Diagnoses Date/Ti me PARATHYROIDECTOMY HPTH (hyperparathyroidism) (HCC) 09/08/2024 10:25 AM TOOL PROCUREMENT COORDINATOR EXPLORATION PARATHYROID HPTH (hyperparathyroidism) ([facility]) 09/08/2024 10:25 AM TOOL PROCUREMENT COORDINATOR documented as of this encounter Procedures Procedure Name Priority Date/Time Associated Diagnosis Comments US SOFT TISSUE NECK Schedule Routine, Read Routine (OP Routine) 07/13/2024 11:57 AM TOOL PROCUREMENT COORDINATOR Primary hyperparathyroidism (HCC) documented in this encounter Results * US Soft Tissue Neck (07/13/2024 11:57 AM TOOL PROCUREMENT COORDINATOR) Anatomical Region Laterality Modality Head and Neck N/A Ultrasound 07/13/2024 12:0 2 PM TOOL PROCUREMENT COORDINATOR Impressions 07/13/2024 12:59 PM TOOL PROCUREMENT COORDINATOR Parathyroid adenoma adjacent to the inferior left thyroid lobe, also characterized on CT dated 06/27/2024. Dictated by: Ren Sierra MD PHD The radiology attending physician has personally reviewed this study, and had reviewed and/or edited this written report and agrees with it. Electronically signed by: Pushpa Up M.D. Narrative 07/13/2024 12:59 PM TOOL PROCUREMENT COORDINATOR EXAMINATION: US SOFT TISSUE NECK HISTORY: Left parathyroid adenoma seen on CT dated 06/27/2024. Elevated parathyroid hormone of 166, with calcium of 11.4 on 07/13/2024, previously PTH of 112 on 09/17/2015. COMPARISON: 4D CT 06/27/2024 FINDINGS: The thyroid is normal in size. Size right lobe: 6.1 cm craniocaudal, 1.6 cm transverse, 1.7 cm AP. Size left lobe: 5.2 cm craniocaudal, 1.9 cm transverse, 1.3 cm AP. Size isthmus: 0.3 cm AP. There are multiple small thyroid nodules that do not require further evaluation per ACR TIRADS guidelines. There is a 1.8 x 0.8 x 1.1 cm hypoechoic solid lesion adjacent to the inferior left thyroid lobe with polar vascularity correlating to the hypoattenuating lesion seen on CT dated 06/27/2024 compatible with a parathyroid adenoma. Procedure Note Pushpa Up MD - 07/13/2024 EXAMINATION: US SOFT TISSUE NECK HISTORY: Left parathyroid adenoma seen on CT dated 06/27/2024. Elevated parathyroid hormone of 166, with calcium of 11.4 on 07/13/2024, previously PTH of 112 on 09/17/2015. COMPARISON: 4D CT 06/27/2024 FINDINGS: The thyroid is normal in size. Size right lobe: 6.1 cm craniocaudal, 1.6 cm transverse, 1.7 cm AP. Size left lobe: 5.2 cm craniocaudal, 1.9 cm transverse, 1.3 cm AP. Size isthmus: 0.3 cm AP. There are multiple small thyroid nodules that do not require further evaluation per ACR TIRADS guidelines. There is a 1.8 x 0.8 x 1.1 cm hypoechoic solid lesion adjacent to the inferior left thyroid lobe with polar vascularity correlating to the hypoattenuating lesion seen on CT dated 06/27/2024 compatible with a parathyroid adenoma. IMPRESSION: Parathyroid adenoma adjacent to the inferior left thyroid lobe, also characterized on CT dated 06/27/2024. Dictated by: Ren Sierra MD PHD The radiology attending physician has personally reviewed this study, and had reviewed and/or edited this written report and agrees with it. Electronically signed by: Pushpa Up M.D. us Dionisio Duran MD IMG US PROCEDURES Final Result documented in this encounter Visit Diagnoses Diagnosis Primary hyperparathyroidism (HCC) Primary hyperparathyroidism HPTH (hyperparathyroidism) (HCC)- Primary Hyperparathyroidism, unspecified HPTH (hyperparathyroidism) (HCC) Hyperparathyroidism, unspecified documented in this encounter Care Teams Mop Handle Assembler Relationship Specialty Start Date End Date Carmella Gunderson MD PCP - General Family Medicine 01/28/24 Swati Hayward MD [address] [place] [address] Referring Physician Internal Medicine 05/31/24 documented as of this encounter
--- OUTSIDE RECORDS SUMMARY | 2024-08-22 05:16 | XMS_ITS | Clinical Summary ---
Author Organization [facility] Address [address] [place] [address] Care Team Providers Care Patternmaker Pressure Cast Name Role Phone Carmella Gunderson MD Primary Care Provider + Swati Hayward MD Unavailable Allergies Active Allergy Reactions Criticality Noted Date Comments Erythromycin Nausea & Vomiting Low 08/17/2024 Latex Swelling,Rash Medium 02/08/2024 Penicillins Hives High Reaction: Hives, Medications omeprazole (PriLOSEC) 40 mg capsuleIndications:S ymptomatic Gastroesophageal Reflux Disease Take 1 capsule (40 mg total) by mouth every morning 04/05/20 24 Active metoprolol tartrate (LOPRESSOR) 25 mg immediate release tabletIndications:hy pertension Take 1 tablet (25 mg total) by mouth 2 (two) times a day 06/13/20 24 Active aspirin 81 mg chewable tabletIndications:My ocardial Reinfarction Prevention Take 1 tablet (81 mg total) by mouth nightly Active fexofenadine (KALYANI) 180 mg tabletIndications:Al lergic Rhinitis Take 1 tablet (180 mg total) by mouth every morning Active atorvastatin (LIPITOR) 10 mg tabletIndications:hy perlipidemia Take 1 tablet (10 mg total) by mouth every evening Active cholecalciferol (VITAMIN D-3) 2000 unit tablet Take 1 tablet (2,000 Units total) by mouth every morning Active polyvinyl alcohol-povidone (REFRESH CLASSIC) 1.4-0.6 % dropperette Administer 1 drop into both eyes daily as needed for dry eyes Active vitamin D3-vitamin K2 25 mcg (1,000 unit)-90 mcg tablet,disintegratin g Take by mouth 024 Discontin ued(Thera py completed ) Active Problems Problem Noted Date Diagnosed Date HPTH (hyperparathyroidism) 07/13/2024 Obesity 01/28/2016 Fatigue 09/17/2015 Ventricular premature beats 09/17/2015 Primary hyperparathyroidism 09/17/2015 Hypercalcemia 09/17/2015 Encounters Date Type Department Care Team Description 07/13/2024 1:45 PM SPECIAL EDUCATION SCIENCE TEACHER Office Visit [facility] [address] [place] [address] [address] [place] [address] Dionisio Duran MD Hyperparathyroidism (HCC) 07/13/2024 11:00 AM SPECIAL EDUCATION SCIENCE TEACHER - 07/13/2024 11:59 PM SPECIAL EDUCATION SCIENCE TEACHER Hospital Encounter [facility] ([facility]) [address] [place] [address] Primary hyperparathyroidism (HCC) Discharge Disposition: Discharge to home or self care 07/13/2024 Documentation [facility] [address] [place] [address] [address] [place] [address] Katarzyna Merchant RN 07/07/2024 1:19 PM SPECIAL EDUCATION SCIENCE TEACHER - 07/07/2024 11:59 PM SPECIAL EDUCATION SCIENCE TEACHER Hospital Encounter [facility] ([facility]) [address] [place] [address] Primary hyperparathyroidism (HCC) Discharge Disposition: Discharge to home or self care 06/26/2024 Telephone [facility] [address] [place] [address] [address] [place] [id number] Dionisio Duran MD Medical Question/Miscellaneous 06/01/2024 Orders Only [facility] [address] [place] [address] [address] [place] [id number] Dionisio Duran MD Primary hyperparathyroidism (HCC) (Primary Dx) from Last 3 Months Immunizations Name Administration Dates Next Due Influenza, Quadrivalent, Rosalinda l Culture-based MDCK, Preservative Free, Antibiotic Free, Intramuscular 06/14/2023,06/26/2022 Influenza, Quadrivalent, Rec ombinant, Egg Free, Preservative Free, Intramuscular 06/11/2020 Influenza, Trivalent, IM (MDV) 06/10/2021 Tdap 09/14/2023 ZOSTER Recombinant 04/20/2022,11/04/2021 Surgical History Surgery Date Site/Laterality Comments TONSILLECTOMY 08/23/1967 - 08/22/1968 CYST REMOVAL 08/23/1982 - 08/22/1983 Left hand WISDOM TOOTH EXTRACTION 08/23/1982 - 08/22/1983 TOOTH EXTRACTION 1960s, baby tooth removal, multiple Family History Medical History Relation Name Comments Heart disease Father Family history of cardiac disorder - (Added by TW Conv) Hypertension Father Family history of hypertension - (Added by TW Conv) Parkinsonism Father Parkinson disea se, symptomatic - (Added by TW Conv) Cancer Father's Sister Lung cancer Maternal Grandfather Colon cancer Maternal Grandmother Heart disease Mother Family history of cardiac disorder - (Added by TW Conv) Rheum arthritis Mother Family histo ry of rheumatoid arthritis - (Added by TW Conv) Breast cancer Paternal Grandfather Skin cancer Paternal Grandfather Relation Name Status Comments Father Father's Sister Maternal Grandfather Maternal Grandmother Mother Paternal Grandfather Social History Tobacco Use Types Packs/Day Years Used Date Smoking Tobacco: Former Cigarettes 1 8 1 1983 Passive Smoke Exposure: Past Smokeless Tobacco: Never Tobacco Cessation:Counseling Given: Not Answered AUDIT-C Answer Date Recorded Q1: How often do you have a drink containing alc ohol? Monthly or less 08/17/2024 Q2: How many drinks containi ng alcohol do you have on a typical day when you are drinking? 1 or 2 08/17/2024 Q3: How often do you have si x or more drinks on one occasion? Never 08/17/2024 Comments Unknown Sex and Gender Information Value Date Recorded Sex Assigned at Not on file Legal Sex Female 2:16 AM SPECIAL EDUCATION SCIENCE TEACHER Gender Identity Not on file Sexual Orientation Not on file Obstetrics History Last Filed Vital Signs Vital Sign Reading Time Taken Comments Blood Pressure 115/74 07/13/2024 1:35 PM SPECIAL EDUCATION SCIENCE TEACHER Pulse 67 07/13/2024 1:35 PM SPECIAL EDUCATION SCIENCE TEACHER Temperature 36.5 ??C (97.7 ??F) 07/13/2024 1:35 PM CS T Respiratory Rate 18 07/13/2024 1:35 PM SPECIAL EDUCATION SCIENCE TEACHER Oxygen Saturation 98% 07/13/2024 1:35 PM SPECIAL EDUCATION SCIENCE TEACHER Inhaled Oxygen Concentration - - Weight 90.7 kg (200 lb) 08/17/2024 2:15 PM SPECIAL EDUCATION SCIENCE TEACHER Height 162.6 cm (5' 4 ) 08/17/2024 2:15 PM SPECIAL EDUCATION SCIENCE TEACHER Body Mass Index 34.33 08/17/2024 2:15 PM SPECIAL EDUCATION SCIENCE TEACHER Plan of Treatment Upcoming Encounters Date Type Department Care Team (Late st Contact Info) Description 09/08/2024 10:25 AM SPECIAL EDUCATION SCIENCE TEACHER Hospital Encounter [facility] [address] [place] [address] Dionisio Duran MD [address] [place] [address] 09/08/2024 10:25 AM SPECIAL EDUCATION SCIENCE TEACHER - 09/08/2024 1:00 PM SPECIAL EDUCATION SCIENCE TEACHER Surgery [facility]) [address] [place] [address] Dionisio Duran MD [address] [place] [address] PARATHYROIDECTOMY Scheduled Procedures Name Priority Associated Diagnoses Date/Ti me PARATHYROIDECTOMY HPTH (hyperparathyroidism) (HCC) 09/08/2024 10:25 AM SPECIAL EDUCATION SCIENCE TEACHER EXPLORATION PARATHYROID HPTH (hyperparathyroidism) (HCC) 09/08/2024 10:25 AM SPECIAL EDUCATION SCIENCE TEACHER Health Maintenance Due Date Last Done Comments Breast Cancer Screening-Mammogram 1961 Cervical Cancer Screening 1961 Colon Cancer Screening-Colonoscopy 1961 Depression Screening 1961 Hepatitis C Screening 1961 Hepatitis B Screening 1979 Regular Well Visit/Exam 18-64 1979 Covid-19 Vaccine ( season) 2024 06/14/2023, 06/26/2022, 08/04/2021, Additional history exists Influenza Vaccine (#1) 2024 , 06/26/2022, 06/10/2021, Additional history exists DTaP/Tdap/Td Vaccine (2 - Td or Tdap) 09/14/2033 09/14/2023 Zoster Vaccine Completed 04/20/2022, 11/04/2021 Pneumococcal vaccine <65 Aged Out No longer eligible based on patient's age to complete this topic Procedures Procedure Name Priority Date/Time Associated Diagnosis Comments US SOFT TISSUE NECK Schedule Routine, Read Routine (OP Routine) 07/13/2024 11:57 AM SPECIAL EDUCATION SCIENCE TEACHER Primary hyperparathyroidism (HCC) CT 4D PARATHYROID Schedule Routine, Read Routine (OP Routine) 07/07/2024 1:58 PM SPECIAL EDUCATION SCIENCE TEACHER Primary hyperparathyroidism (HCC) POCT CREATININE - DEVICE Routine 07/07/2024 1:42 PM SPECIAL EDUCATION SCIENCE TEACHER from Last 3 Months Results * US Soft Tissue Neck (07/13/2024 11:57 AM SPECIAL EDUCATION SCIENCE TEACHER) Anatomical Region Laterality Modality Head and Neck N/A Ultrasound 07/13/2024 12:0 2 PM SPECIAL EDUCATION SCIENCE TEACHER Impressions 07/13/2024 12:59 PM SPECIAL EDUCATION SCIENCE TEACHER Parathyroid adenoma adjacent to the inferior left thyroid lobe, also characterized on CT dated 06/27/2024. Dictated by: Ren Sierra MD PHD The radiology attending physician has personally reviewed this study, and had reviewed and/or edited this written report and agrees with it. Electronically signed by: Pushpa Up M.D. Narrative 07/13/2024 12:59 PM SPECIAL EDUCATION SCIENCE TEACHER EXAMINATION: US SOFT TISSUE NECK HISTORY: Left [...] Duran MD IMG US PROCEDURES Final Result * CT 4D Parathyroid (07/07/2024 1:58 PM SPECIAL EDUCATION SCIENCE TEACHER) Anatomical Region Laterality Modality Head and Neck N/A Computed Tomogra phy 07/07/2024 4:03 PM SPECIAL EDUCATION SCIENCE TEACHER Impressions 07/07/2024 5:00 PM SPECIAL EDUCATION SCIENCE TEACHER 16 mm lesion along the inferior aspect of the left thyroid with imaging findings consistent with a parathyroid adenoma. Dictated by: Mona Villar M.D. The radiology attending physician has personally reviewed this study, and had reviewed and/or edited this written report and agrees with it. Electronically signed by: Rosalina Bee M.D. Narrative 07/07/2024 5:00 PM SPECIAL EDUCATION SCIENCE TEACHER EXAMINATION: CT of the neck without and with contrast HISTORY: Primary hyperparathyroidism TECHNIQUE: CT of the neck was performed according to the parathyroid protocol without contrast and with intravenous contrast after arterial and venous delays. Contrast information: 125 mL Optiray-350 COMPARISON: None Available. FINDINGS: There is a 16mm lesion along the inferior aspect of the left thyroid gland which is hypoattenuating compared to thyroid gland on noncontrast images. It demonstrates enhancement on postcontrast images and does not wash out. This lesion can be seen on series 13 image 68 and series 4 image 65. Scattered subcentimeter lymph nodes are seen in the neck. None are pathologically enlarged or abnormally enhancing. The muscles of the neck are normal. Vessels of the neck demonstrate normal course and caliber. Fascial planes are preserved and the deep spaces of the neck are normal. The visualized airway is widely patent. Mild degenerative changes of the cervical spine. The spinal canal is normal in caliber. Intervertebral disk heights are normal. Neural foramina are normal. Limited examination of the superior thorax shows no pulmonary infiltrate, suspicious nodules, or pleural effusions. Procedure Note Rosalina Bee MD - 07/07/2024 EXAMINATION: CT of the neck without and with contrast HISTORY: Primary hyperparathyroidism TECHNIQUE: CT of the neck was performed according to the parathyroid protocol without contrast and with intravenous contrast after arterial and venous delays. Contrast information: 125 mL Optiray-350 COMPARISON: None Available. FINDINGS: There is a 16mm lesion along the inferior aspect of the left thyroid gland which is hypoattenuating compared to thyroid gland on noncontrast images. It demonstrates enhancement on postcontrast images and does not wash out. This lesion can be seen on series 13 image 68 and series 4 image 65. Scattered subcentimeter lymph nodes are seen in the neck. None are pathologically enlarged or abnormally enhancing. The muscles of the neck are normal. Vessels of the neck demonstrate normal course and caliber. Fascial planes are preserved and the deep spaces of the neck are normal. The visualized airway is widely patent. Mild degenerative changes of the cervical spine. The spinal canal is normal in caliber. Intervertebral disk heights are normal. Neural foramina are normal. Limited examination of the superior thorax shows no pulmonary infiltrate, suspicious nodules, or pleural effusions. IMPRESSION: 16 mm lesion along the inferior aspect of the left thyroid with imaging findings consistent with a parathyroid adenoma. Dictated by: Mona Villar M.D. The radiology attending physician has personally reviewed this study, and had reviewed and/or edited this written report and agrees with it. Electronically signed by: Rosalina Bee M.D. Dionisio Duran MD IMG CT PROCEDURES Final Result * POCT creatinine (07/07/2024 1:42 PM SPECIAL EDUCATION SCIENCE TEACHER) Creatinine POC 0.8 0.6 - 1.1 mg/dL Blood 07/07/2024 1:42 PM SPECIAL EDUCATION SCIENCE TEACHER 07/07/2024 1:42 PM SPECIAL EDUCATION SCIENCE TEACHER Dionisio Duran MD LAB POCT ORDERABLES - D EVICE Final Result [facility] Department [place] [address] from Last 3 Months Insurance [employer] Care Teams Patternmaker Pressure Cast Relationship Specialty Start Date End Date Carmella Gunderson MD PCP - General Family Medicine 01/28/24 Swati Hayward MD [address] [address] Referring Physician Internal Medicine 05/31/24
--- OUTSIDE RECORDS SUMMARY | 2024-08-22 05:16 | XMS_ITS | Encounter Summary ---
Author Organization [facility] Address [address] [place] [address] Phone Care Team Providers Care Music Executive Name Role Phone Carmella Gunderson MD Primary Care Provider + Swati Hayward MD Unavailable [phone] Reason for Referral * Diagnostic Imaging (Routine) - Closed Specialty Diagnoses / Procedures Referred By Contac t Referred To Contact Diagnoses Primary hyperparathyroidism (HCC) Procedures US Soft Tissue Neck Dionisio Duran MD [address] [place] [address] Phone: tel: fax: [address] [address] Referral ID Status Reason Start Date Expiration Date Visits Re quested Visits Authorized [id number] Closed 06/01/2024 07/01/2025 1 1 * MRI/CAT/PET Scan (Routine) - Closed Specialty Diagnoses / Procedures Referred By Contac t Referred To Contact Radiology Diagnoses Primary hyperparathyroidism (HCC) Procedures CT 4D Parathyroid Dionisio Duran MD [address] [place] [address] Phone: tel: fax: [address] [address] Referral ID Status Reason Start Date Expiration Date Visits Re quested Visits Authorized [id number] Closed 06/01/2024 07/01/2025 1 1 Encounter Details Date Type Department Care Team (Latest Contact Info) Description 06/01/2024 Orders Only [facility] [address] [facility] [address] [place] [address] Dionisio Duran MD [address] [place] [address] Primary hyperparathyroidism (HCC) (Primary Dx) Social History Tobacco Use Types Packs/Day Years Used Date Smoking Tobacco: Never Assessed Comments Unknown Sex and Gender Information Value Date Recorded Sex Assigned at Not on file Legal Sex Female 2:16 AM JACKSCREW WORKER Gender Identity Not on file Sexual Orientation Not on file documented as of this encounter Plan of Treatment Upcoming Encounters Date Type Department Care Team (Late st Contact Info) Description 09/08/2024 10:25 AM JACKSCREW WORKER Hospital Encounter [facility] [address] [place] [address] Dionisio Duran MD [address] [place] [address] 09/08/2024 10:25 AM JACKSCREW WORKER - 09/08/2024 1:00 PM JACKSCREW WORKER Surgery [facility] [address] [place] [address] Dionisio Duran MD [address] [place] [address] PARATHYROIDECTOMY Scheduled Procedures Name Priority Associated Diagnoses Date/Ti me PARATHYROIDECTOMY HPTH (hyperparathyroidism) (HCC) 09/08/2024 10:25 AM JACKSCREW WORKER EXPLORATION PARATHYROID HPTH (hyperparathyroidism) (HCC) 09/08/2024 10:25 AM JACKSCREW WORKER documented as of this encounter Results * US Soft Tissue Neck (07/13/2024 11:57 AM JACKSCREW WORKER) Anatomical Region Laterality Modality Head and Neck N/A Ultrasound 07/13/2024 12:0 2 PM JACKSCREW WORKER Impressions 07/13/2024 12:59 PM JACKSCREW WORKER Parathyroid adenoma adjacent to the inferior left thyroid lobe, also characterized on CT dated 06/27/2024. Dictated by: Ren Sierra MD PHD The radiology attending physician has personally reviewed this study, and had reviewed and/or edited this written report and agrees with it. Electronically signed by: Pushpa Up M.D. Narrative 07/13/2024 12:59 PM JACKSCREW WORKER EXAMINATION: US SOFT TISSUE NECK HISTORY: Left [...] * CT 4D Parathyroid (07/07/2024 1:58 PM JACKSCREW WORKER) Anatomical Region Laterality Modality Head and Neck N/A Computed Tomogra phy 07/07/2024 4:03 PM JACKSCREW WORKER Impressions 07/07/2024 5:00 PM JACKSCREW WORKER 16 mm lesion along the inferior aspect of the left thyroid with imaging findings consistent with a parathyroid adenoma. Dictated by: Mona Villar M.D. The radiology attending physician has personally reviewed this study, and had reviewed and/or edited this written report and agrees with it. Electronically signed by: Rosalina Bee M.D. Narrative 07/07/2024 5:00 PM JACKSCREW WORKER EXAMINATION: CT of the neck without and [...] by: Rosalina Bee M.D. Dionisio Duran MD IM CT PROCEDURES Final Result documented in this encounter Visit Diagnoses Diagnosis Primary hyperparathyroidism (HCC)- Primary Primary hyperparathyroidism Primary hyperparathyroidism (HCC) Primary hyperparathyroidism Primary hyperparathyroidism (HCC) Primary hyperparathyroidism HPTH (hyperparathyroidism) (HCC) Hyperparathyroidism, unspecified documented in this encounter Care Teams Music Executive Relationship Specialty Start Date End Date Carmella Gunderson MD PCP - General Family Medicine 01/28/24 Swati Hayward MD [address] [address] Referring Physician Internal Medicine 05/31/24 documented as of this encounter
--- OUTSIDE RECORDS SUMMARY | 2024-08-22 05:16 | XMS_ITS | Encounter Summary ---
Author Organization [facility] Facility Care Team Providers Care Malt Specifications Control Assistant Name Role Phone Unavailable Primary Care Provider Unavailabl e Encounter Details Date Type Department Care Team (Latest Contact Info) Description 09/17/2015 3:28 PM BENEFITS PROCESSOR - 09/17/2015 11:59 PM BENEFITS PROCESSOR Hospital Encounter [facility] Kely Pascal MD [address] [facility] [address] [place] [address] Primary hyperparathyroidism (CMS/HCC); Other fatigue; Hyperglycemia Social History Tobacco Use Types Packs/Day Years Used Date Smoking Tobacco: Never Assessed Comments Unknown Sex and Gender Information Value Date Recorded Sex Assigned at Not on file Legal Sex Female 2:16 AM BENEFITS PROCESSOR Gender Identity Not on file Sexual Orientation Not on file documented as of this encounter Plan of Treatment Upcoming Encounters Date Type Department Care Team (Late st Contact Info) Description 09/08/2024 10:25 AM BENEFITS PROCESSOR Hospital Encounter [facility] [address] [place] [id number] Dionisio Duran MD [address] [facility] [address] 09/08/2024 10:25 AM BENEFITS PROCESSOR - 09/08/2024 1:00 PM BENEFITS PROCESSOR Surgery [facility]) [address] [place] [address] Dionisio Duran MD [address] [place] [address] PARATHYROIDECTOMY Scheduled Procedures Name Priority Associated Diagnoses Date/Ti me PARATHYROIDECTOMY HPTH (hyperparathyroidism) ([facility]) 09/08/2024 10:25 AM BENEFITS PROCESSOR EXPLORATION PARATHYROID HPTH (hyperparathyroidism) ([facility]) 09/08/2024 10:25 AM BENEFITS PROCESSOR documented as of this encounter Procedures Procedure Name Priority Date/Time Associated Diagnosis Comments PLASMA THYROXINE (T4), FREE Routine 09/17/2015 3:42 PM BENEFITS PROCESSOR PLASMA THYROID-STIMULATING HORMONE (TSH) Routine 09/17/2015 3:42 PM BENEFITS PROCESSOR PLASMA PHOSPHORUS Routine 09/17/2015 3:4 2 PM BENEFITS PROCESSOR PLASMA COMPREHENSIVE METABOLIC PANEL Routine 09/17/2015 3:42 PM BENEFITS PROCESSOR BLOOD CELL COUNT (CBC), MORPHOLOGIC EXAM Routine 09/17/2015 3:42 PM BENEFITS PROCESSOR SERUM PARATHYROID HORMONE (PTH), INTACT Routine 09/17/2015 9:42 AM BENEFITS PROCESSOR SERUM 25-HYDROXYCHOLECALCIFERO L (VITAMIN D) Routine 09/17/2015 9:42 AM BENEFITS PROCESSOR PLASMA TRIIODOTHYRONINE (T3), FREE Routine 09/17/2015 9:42 AM BENEFITS PROCESSOR PLASMA CYANOCOBALAMIN (VITAMIN B12) Routine 09/17/2015 9:42 AM BENEFITS PROCESSOR DISCHARGE LABORATORY CUMULATIVE REPORT 09/17/2015 documented in this encounter Results * (ABNORMAL) Blood cell count (CBC), morphologic exam (09/17/2015 3:42 PM BENEFITS PROCESSOR) WBC 7.4 4.5 - 11.0 K/cumm HISTORICAL RESULTS Lymphocytes, abs 2.7 1.2 - 3.3 K/cumm HISTORICAL RESULTS RBC 4.70 3.80 - 5.40 M/cumm HISTORICAL RESULTS Monocytes, absolute 0.5 0.2 - 1.2 K/cumm HISTORICAL RESULTS Hgb 13.2 11.5 - 16.0 g/dl HISTORICAL RESULTS Eosinophils, abs 0.1 0.0 - 0.5 K/cumm HISTORICAL RESULTS Hct 40.4 34.0 - 48.0 % HISTORICAL RESULTS Basophils, abs 0.0 0.0 - 0.2 K/cumm HISTORICAL RESULTS MCV 86.0 80.0 - 100.0 fl HISTORICAL RESULTS MCH 28.1 27.0 - 33.0 pg HISTORICAL RESULTS MCHC 32.7 32.0 - 36.0 g/dl HISTORICAL RESULTS Rdw 13.8 11.5 - 14.5 % HISTORICAL RESULTS Platelets 287 140 - 400 K/cumm HISTORICAL RESULTS MPV 11.2(H) 7.4 - 10.4 fl HISTORICAL RESULTS Neutrophils 53.9 42.0 - 75.0 % HISTORICAL RESULTS Lymphocytes 36.7 21.0 - 51.0 % HISTORICAL RESULTS Monos 7.2 2.0 - 9.0 % HISTORICAL RESULTS Eosinophils 1.8 0.0 - 10.0 % HISTORICAL RESULTS Basophils 0.4 0.0 - 1.0 % HISTORICAL RESULTS Neutrophils, abs 4.0 1.0 - 6.6 K/cumm HISTORICAL RESULTS Blood specimen (specimen) 09/17/2015 3:42 PM BENEFITS PROCESSOR us Kely Pascal MD LAB BLOOD ORDERABLES Final Resu lt HISTORICAL RESULTS * (ABNORMAL) Plasma comprehensive metabolic panel (09/17/2015 3:42 PM BENEFITS PROCESSOR) eGFR >60 ml/min/1.7 3 m2 HISTORICAL RESULTS Comment: GFR Reference Range: = > 60 mL/min/1.73 m2 This result has been calculated assuming the patient is Non-. ??If the patient is , please multiply this result by 1.21. Sodium 141 135 - 145 mmol/L HISTORICAL RESULTS K, pl 4.0 3.3 - 4.9 mmol/L HISTORICAL RESULTS Chloride 102 97 - 110 mmol/L HISTORICAL RESULTS CO2 22 20 - 32 mmol/L HISTORICAL RESULTS A. gap 17(H) 2 - 15 mmol/L HISTORICAL RESULTS BUN 13 8 - 25 mg/dl HISTORICAL RESULTS Creatinine 0.8 0.6 - 1.1 mg/dl HISTORICAL RESULTS Glucose 69(L) 70 - 199 mg/dl HISTORICAL RESULTS Comment: Glucose is assumed to be non-fasting. Fasting Glucose reference ranges are: 0 days - 3 days: ? 40 mg/dL - 99 mg/dL 3 days - 999 years: ?70 mg/dL - 99 mg/dL Protein, sr 8.4 6.6 - 8.5 g/dl HISTORICAL RESULTS Alb 4.7 3.5 - 5.0 g/dl HISTORICAL RESULTS Calcium 10.6(H) 8.5 - 10.3 mg/dl HISTORICAL RESULTS Alk phos 107 40 - 130 Units/L HISTORICAL RESULTS Bilirubin 0.2 0.1 - 1.2 mg/dl HISTORICAL RESULTS ALT 29 7 - 45 Units/L HISTORICAL RESULTS AST 30 10 - 45 Units/L HISTORICAL RESULTS Comment:Specimen hemolyzed; results may be falsely elevated. Plasma 09/17/2015 3:42 PM BENEFITS PROCESSOR Result [facility] Kely Pascal MD LAB BLOOD ORDERABLES Final Resu lt Performing Organization Address [facility] de Phone Number HISTORICAL RESULTS * Plasma phosphorus (09/17/2015 3:42 PM BENEFITS PROCESSOR) Phosphorus, pl 3.7 2.5 - 4.5 mg/dl HISTORICAL RESULTS Plasma 09/17/2015 3:42 PM BENEFITS PROCESSOR Result [facility] us Kely Pascal MD LAB BLOOD ORDERABLES Final Resu lt Performing Organization Address [facility] de Phone Number HISTORICAL RESULTS * Plasma thyroxine (T4), free (09/17/2015 3:42 PM BENEFITS PROCESSOR) Free T4 1.01 0.90 - 1.70 ng/dl HISTORICAL RESULTS Plasma 09/17/2015 3:42 PM BENEFITS PROCESSOR Result [facility] us Kely Pascal MD LAB BLOOD ORDERABLES Final Resu lt Performing Organization Address [facility] de Phone Number HISTORICAL RESULTS * Plasma thyroid-stimulating hormone (TSH) (09/17/2015 3:42 PM BENEFITS PROCESSOR) TSH 2.12 0.30 - 4.20 mcIUnits/m l HISTORICAL RESULTS Comment: [facility] is now performing 3rd generation TSH testing. Plasma 09/17/2015 3:42 PM BENEFITS PROCESSOR us Kely Pascal MD LAB BLOOD ORDERABLES Final Resu lt Performing Organization Address City/[facility]/ZIP Co de Phone Number HISTORICAL RESULTS * Plasma triiodothyronine (T3), free (09/17/2015 9:42 AM BENEFITS PROCESSOR) Free T3 3.00 2.30 - 4.20 pg/ml HISTORICAL RESULTS Plasma 09/17/2015 9:42 AM BENEFITS PROCESSOR Narrative HISTORICAL RESULTS - 09/17/2015 2:58 PM BENEFITS PROCESSOR Test performed at [facility], ??[address] [place] [address],[facility], [address] us Kely Pascal MD LAB BLOOD ORDERABLES Final Resu lt Performing Organization Address [facility] Co de Phone Number HISTORICAL RESULTS * Plasma cyanocobalamin (vitamin B12) (09/17/2015 9:42 AM BENEFITS PROCESSOR) Cyanocobalamin (Vit B12) 431 180 - 999 pg/ml HISTORICAL RESULTS Plasma 09/17/2015 9:42 AM BENEFITS PROCESSOR Narrative HISTORICAL RESULTS - 09/17/2015 3:14 PM BENEFITS PROCESSOR Test performed at [facility], ??[address] [place] [address],[place], [place], [facility], [address] us Kely Pascal MD LAB BLOOD ORDERABLES Final Resu lt Performing Organization Address City/[facility] Co de Phone Number HISTORICAL RESULTS * (ABNORMAL) Serum 25-hydroxycholecalciferol (vitamin D) (09/17/2015 9:42 AM BENEFITS PROCESSOR) 25-OH Vit D 22(L) 30 - 100 ng/ml HISTORICAL RESULTS Serum 09/17/2015 9:42 AM BENEFITS PROCESSOR Narrative HISTORICAL RESULTS - 09/17/2015 3:45 PM BENEFITS PROCESSOR Test performed at [facility], [address] [facility],, [facility], [address]. Kely Pascal MD LAB BLOOD ORDERABLES Final Resu lt Performing Organization Address City/[facility]/ZIP Co de Phone Number HISTORICAL RESULTS * (ABNORMAL) Serum parathyroid hormone (PTH), intact (09/17/2015 9:42 AM BENEFITS PROCESSOR) PTH, intact 112(H) 14 - 72 pg/ml HISTORICAL RESULTS Serum 09/17/2015 9:42 AM BENEFITS PROCESSOR Narrative HISTORICAL RESULTS - 09/17/2015 3:54 PM BENEFITS PROCESSOR Test performed at [facility], [address] [facility],, [facility], [address]. Kely Pascal MD LAB BLOOD ORDERABLES Final Resu lt HISTORICAL RESULTS * DISCHARGE LABORATORY CUMULATIVE REPORT (09/17/2015) Narrative 09/17/2015 Ordered by an unspecified provider. Result [facility] Provider LAB BLOOD ORDERABLES Rosy l Result documented in this encounter Visit Diagnoses Diagnosis Primary hyperparathyroidism (HCC) Primary hyperparathyroidism Other fatigue Hyperglycemia Other abnormal glucose HPTH (hyperparathyroidism) (HCC) Hyperparathyroidism, unspecified documented in this encounter
--- OUTSIDE RECORDS SUMMARY | 2024-08-22 05:16 | XMS_ITS | Encounter Summary ---
Author Organization [facility] Address [address] [place] [address] Phone Care Team Providers Care Program Support Assistant Name Role Phone Carmella Gunderson MD Primary Care Provider + Swati Hayward MD Unavailable [phone] Reason for Visit * Consultation (Routine) - Closed Specialty Diagnoses / Procedures Referred By Contmacario t Referred To Contact Surgical Oncology Diagnoses Hyperparathyroidism (HCC) Swati Hayward MD [address] [address] Phone: tel: fax: Dionisio Duran MD [address] [place] [address] Phone: tel: fax: Referral ID Status Reason Start Date Expiration Date V isits Requested Visits Authorized [id number] Closed Specialty Services Required 05/31/2024 06/30/2025 1 1 Encounter Details Date Type Department Care Team (Latest Contact Info) Description 07/13/2024 1:45 PM ROLL OUT MANAGER Office Visit [facility] Surgery [address] [facility] [address] [place] [address] Dionisio Duran MD [address] [place] [address] Hyperparathyroidism (HCC) Social History Tobacco Use Types Packs/Day Years Used Date Smoking Tobacco: Never Passive Smoke Exposure: Never Comments Unknown Sex and Gender Information Value Date Recorded Sex Assigned at Not on file Legal Sex Female 2:16 AM ROLL OUT MANAGER Gender Identity Not on file Sexual Orientation Not on file documented as of this encounter Last Filed Vital Signs Vital Sign Reading Time Taken Comments Blood Pressure 115/74 07/13/2024 1:35 PM ROLL OUT MANAGER Pulse 67 07/13/2024 1:35 PM ROLL OUT MANAGER Temperature 36.5 ??C (97.7 ??F) 07/13/2024 1:35 PM CS T Respiratory Rate 18 07/13/2024 1:35 PM ROLL OUT MANAGER Oxygen Saturation 98% 07/13/2024 1:35 PM ROLL OUT MANAGER Inhaled Oxygen Concentration - - Weight 92.1 kg (203 lb) 07/13/2024 1:35 PM ROLL OUT MANAGER Height 160.5 cm (5' 3.19 ) 07/13/2024 1:35 PM CS T Body Mass Index 35.75 07/13/2024 1:35 PM ROLL OUT MANAGER documented in this encounter Progress Notes * Dionisio Duran MD - 07/13/2024 1:45 PM CST PATIENT NAME: Ivy Snyder DATE OF : 1960 DATE OF OFFICE VISIT: 07/13/2024 REFERRING MD: Swati Hayward MD CHIEF COMPLAINT: Ivy Snyder is a 64 y.o. female with chief complaint of primary hyperparathyroidism. A consult was requested by Swati Hayward MD. HPI: The patient is a 64 yo female with PMH of GERD, Raynaud's syndrome, depression, and obesity who presents to clinic for evaluation of primary hyperparathyroidism. Recent labs on 05/15/24 were notable for serum Ca++ 11.4, PTH 166, Phos 3.3, and urine calcium 300. The patient had a nuclear medicine parathyroid scan on 06/07/23 which demonstrated no focus of persistent activity in the area of thethyroid or mediastinum. She had repeat imaging performed this month which is notable for a 1.6 cm lesion on inferior aspect of left thyroid lobe consistent with parathyroid adenoma. The patient denies bone pain, heartburn, constipation, mental fog, lethargy, muscle weakness. She has been taking vitamin D supplementation. PAST MEDICAL HISTORY: GERD, Raynaud's syndrome, depression, obesity PAST SURGICAL HISTORY: Tonsillectomy MEDICATIONS: HOME MEDICATIONS : Not on File ALLERGIES: Allergies Allergen Reactions Penicillins Hives Reaction: Hives, Latex Swelling and Rash FAMILY HISTORY: Family History Problem Relation Age of Onset Heart disease Mother Family history of cardiac disorder - (Added by TW Conv) Heart disease Father Family history of cardiac disorder - (Added by TW Conv) Rheum arthritis Mother Family history of rheumatoid arthritis - (Added by TW Conv) Hypertension Father Family history of hypertension - (Added by TW Conv) Parkinsonism Father Parkinson disease, symptomatic - (Added by TW Conv) SOCIAL HISTORY: Social History Tobacco Use Smoking status: Not on file Smokeless tobacco: Not on file Substance and Sexual Activity Drug use: Not on file Sexual activity: Not on file Alcohol Use: Not on file REVIEW OF SYSTEMS: GENERAL: Denies fevers, chills or malaise. SKIN: Denies rashes, sores. HEAD: Denies headache, migraine. EYES: Denies vision change, glaucoma. RESPIRATORY: Denies cough, sputum, hemoptysis, TB, pneumonia. CARDIAC: Denies chest pain, palpitations, dyspnea, orthopnea. GASTROINTESTINAL: Denies heartburn/reflux, nausea, dyspepsia, vomiting, vomiting of blood, change in bowel habits, rectal bleeding or black/tarry stools. URINARY: Denies polyuria, dysuria, nocturia, infections. VASCULAR: Denies intermittent claudication, leg cramps, thrombophlebitis. Denies DVT, PE. MUSCULOSKELETAL: Denies gout, systemic arthritis. Denies osteoarthritis. NEUROLOGIC: Denies recent fainting, blackouts, seizures, paralysis, tremors, numbness, gait change,stroke. HEMATOLOGIC: Denies easy bruising or bleeding, past transfusion reactions. PSYCH: Denies depression, denies anxiety PHYSICAL EXAMINATION: General: Well-developed, well-nourished in no apparent distress. Eyes: PERRLA, EOM intact. HEENT: NC/AT, sclerae anicteric. Neck: Supple, without thyromegaly or adenopathy. Respiratory: Clear to auscultation bilaterally. Cardiovascular: Regular rate and rhythm. Abdomen: Soft, nontender, nondistended, without obvious masses. Extremities: No edema or cyanosis. Musculoskeletal: Normal range of motion. Neurological examination: Alert and oriented x 3, otherwise grossly nonfocal. Skin/Soft Tissue: No appreciable cervical, supraclavicular, axillary, or inguinal adenopathy. LABORATORY: Lab Results Component Value Date CALCIUM 10.6 (H) 09/17/2015 FREET4 1.01 09/17/2015 TSH 2.12 09/17/2015 RADIOLOGY: EXAMINATION: 07/13/24 US SOFT TISSUE NECK HISTORY: Left parathyroid [...] it. Electronically signed by: Pushpa Up M.D. EXAMINATION: 07/07/24 CT of the neck without and with [...] it. Electronically signed by: Rosalina Bee M.D. PATHOLOGY: None IMPRESSION: The patient is a 64 y.o. female with history of GERD, Raynaud's syndrome, depression, obesity who presents to clinic for evaluation of primary hyperparathyroidism. Her serum calcium is dramatically elevated. Preoperative localization studies suggest a left-sided parathyroid adenoma. PLAN: I had a long discussion with the patient regarding her workup to date. I do think she is a candidate for surgery. I have recommended a parathyroidectomy. I explained the risks and benefits of surgery in detail to the patient. The risks include, but are not limited to, bleeding, wound infection, adverse reaction to anesthesia, injury to recurrent laryngeal nerve, injury to normal parathyroid tissue, persistent primary hyperparathyroidism and other risks. The patient understands these risks and desires to proceed with the operation. Informed consentwas obtained. I have asked my secretary to the vice president to schedule this for the first convenient date. I have seen and examined Ivy Snyder with the resident physician. We worked together to complete the office note, and I personally reviewed and edited the note. I agree with the evaluation and management plan outlined above. Dionisio Duran MD OUT MANAGER documented in this encounter Plan of Treatment Upcoming Encounters Date Type Department Care Team (Late st Contact Info) Description 09/08/2024 10:25 AM ROLL OUT MANAGER Hospital Encounter [facility] ([facility]) [address] [place], [place] [id number] Dionisio Duran MD [address] [place] [address] 09/08/2024 10:25 AM ROLL OUT MANAGER - 09/08/2024 1:00 PM ROLL OUT MANAGER Surgery [facility]) [address] [place] [address] Dionisio Duran MD [address] [place] [address] PARATHYROIDECTOMY Scheduled Procedures Name Priority Associated Diagnoses Date/Ti me PARATHYROIDECTOMY HPTH (hyperparathyroidism) ([facility]) 09/08/2024 10:25 AM ROLL OUT MANAGER EXPLORATION PARATHYROID HPTH (hyperparathyroidism) ([facility]) 09/08/2024 10:25 AM ROLL OUT MANAGER documented as of this encounter Visit Diagnoses Diagnosis Hyperparathyroidism (HCC) Hyperparathyroidism, unspecified HPTH (hyperparathyroidism) ([facility]) Hyperparathyroidism, unspecified documented in this encounter Historical Medications * This list may reflect changes made after this encounter. atorvastatin (LIPITOR) 10 mg tabletIndications:hype rlipidemia Take 1 tablet (10 mg total) by mouth every evening fexofenadine (KALYANI) 180 mg tabletIndications:Azael rgic Rhinitis Take 1 tablet (180 mg total) by mouth every morning aspirin 81 mg chewable tabletIndications:Myoc ardial Reinfarction Prevention Take 1 tablet (81 mg total) by mouth nightly metoprolol tartrate (LOPRESSOR) 25 mg immediate release tabletIndications:hype rtension Take 1 tablet (25 mg total) by mouth 2 (two) times a day 06/13/2024 omeprazole (PriLOSEC) 40 mg capsuleIndications:Sym ptomatic Gastroesophageal Reflux Disease Take 1 capsule (40 mg total) by mouth every morning 04/05/2024 vitamin D3-vitamin K2 25 mcg (1,000 unit)-90 mcg tablet,disintegrating Take by mouth 4 added in this encounter Orders Outpatient Referral Count Last Ordered Date Fir st Ordered Date AMB REFERRAL TO SURGICAL ONCOLOGY 1 024 documented in this encounter Care Teams Program Support Assistant Relationship Specialty Start Date End Date Carmella Gunderson MD PCP - General Family Medicine 01/28/24 Swati Hayward MD [address] [address] Referring Physician Internal Medicine 05/31/24 documented as of this encounter
--- OUTSIDE RECORDS SUMMARY | 2024-08-22 05:16 | XMS_ITS | Referral Summary ---
Author Organization [facility] Address [address] [place] [address] Care Team Providers Care Inclusion Paraeducator Name Role Phone Carmella Gunderson MD Primary Care Provider + Swati Hayward MD Unavailable [phone] Encounters Date Type Department Care Team Description 07/13/2024 Documentation [facility] Surgery [address] [place] [address] 5 [place] [address] Katarzyna Merchant, CHRISTOPHE 07/13/2024 1:45 PM ROOFING APPRENTICE Office Visit [facility] Surgery [address] [place] [address] 5 [place] [address] Dionisio Duran MD Hyperparathyroidism (HCC) 07/13/2024 11:00 AM ROOFING APPRENTICE - 07/13/2024 11:59 PM ROOFING APPRENTICE Hospital Encounter [facility] [address] [place] [address] Primary hyperparathyroidism (HCC) Discharge Disposition: Discharge to home or self care 07/07/2024 1:19 PM ROOFING APPRENTICE - 07/07/2024 11:59 PM ROOFING APPRENTICE Hospital Encounter [facility]) [address] [place] [address] Primary hyperparathyroidism (HCC) Discharge Disposition: Discharge to home or self care 06/26/2024 Telephone [facility] Surgery [address] [place] [address] Floor 8 [place] [address] Dionisio Duran MD Medical Question/Miscellaneous 06/01/2024 Orders Only [facility] Surgery [address] [facility] Floor 5 [place] [phone] Dionisio Duran MD Primary hyperparathyroidism (HCC) (Primary Dx) from Last 3 Months Allergies Active Allergy Reactions Criticality Noted Date [...] beats 09/17/2015 Primary hyperparathyroidism 09/17/2015 Hypercalcemia 09/17/2015 Immunizations Name Administration Dates Next Due Influenza, Quadrivalent, Rosalinda l Culture-based MDCK, Preservative Free, Antibiotic Free, Intramuscular 06/14/2023,06/26/2022 Influenza, Quadrivalent, Rec ombinant, Egg Free, Preservative Free, Intramuscular 06/11/2020 Influenza, Trivalent, IM (MDV) 06/10/2021 Tdap 09/14/2023 ZOSTER Recombinant 04/20/2022,11/04/2021 Social History Tobacco Use Types Packs/Day Years Used Date Smoking Tobacco: Former Cigarettes 1 8 1 976 - 1984 Passive Smoke Exposure: Past Smokeless Tobacco: Never [...] on file Legal Sex Female 2:16 AM ROOFING APPRENTICE Gender Identity Not on file Sexual Orientation Not on file Last Filed Vital Signs Vital Sign Reading Time Taken Comments Blood Pressure 115/74 07/13/2024 1:35 PM ROOFING APPRENTICE Pulse 67 07/13/2024 1:35 PM ROOFING APPRENTICE Temperature 36.5 ??C (97.7 ??F) 07/13/2024 1:35 PM CS T Respiratory Rate 18 07/13/2024 1:35 PM ROOFING APPRENTICE Oxygen Saturation 98% 07/13/2024 1:35 PM ROOFING APPRENTICE Inhaled Oxygen Concentration - - Weight 90.7 kg (200 lb) 08/17/2024 2:15 PM ROOFING APPRENTICE Height 162.6 cm (5' 4 ) 08/17/2024 2:15 PM ROOFING APPRENTICE Body Mass Index 34.33 08/17/2024 2:15 PM ROOFING APPRENTICE Plan of Treatment Upcoming Encounters Date Type Department Care Team (Late st Contact Info) Description 09/08/2024 10:25 AM ROOFING APPRENTICE Hospital Encounter [facility] [address] [place] [address] Dionisio Duran MD [address] [place] [address] 09/08/2024 10:25 AM ROOFING APPRENTICE - 09/08/2024 1:00 PM ROOFING APPRENTICE Surgery [facility] ([facility]) [address] [place] [address] Dionisio Duran MD [address] [place] [address] PARATHYROIDECTOMY Scheduled Procedures Name Priority Associated Diagnoses Date/Ti me PARATHYROIDECTOMY HPTH (hyperparathyroidism) ([facility]) 09/08/2024 10:25 AM ROOFING APPRENTICE EXPLORATION PARATHYROID HPTH (hyperparathyroidism) ([facility]) 09/08/2024 10:25 AM ROOFING APPRENTICE Procedures Procedure Name Priority Date/Time Associated Diagnosis Comments US SOFT TISSUE NECK Schedule Routine, Read Routine (OP Routine) 07/13/2024 11:57 AM ROOFING APPRENTICE Primary hyperparathyroidism (HCC) CT 4D PARATHYROID Schedule Routine, Read Routine (OP Routine) 07/07/2024 1:58 PM ROOFING APPRENTICE Primary hyperparathyroidism (HCC) POCT CREATININE - DEVICE Routine 07/07/2024 1:42 PM ROOFING APPRENTICE from Last 3 Months Results * US Soft Tissue Neck (07/13/2024 11:57 AM ROOFING APPRENTICE) Anatomical Region Laterality Modality Head and Neck N/A Ultrasound 07/13/2024 12:0 2 PM ROOFING APPRENTICE Impressions 07/13/2024 12:59 PM ROOFING APPRENTICE Parathyroid adenoma adjacent to the inferior left thyroid lobe, also characterized on CT dated 06/27/2024. Dictated by: Ren Sierra MD PHD The radiology attending physician has personally reviewed this study, and had reviewed and/or edited this written report and agrees with it. Electronically signed by: Pushpa Up M.D. Narrative 07/13/2024 12:59 PM ROOFING APPRENTICE EXAMINATION: US SOFT TISSUE NECK HISTORY: Left [...] * CT 4D Parathyroid (07/07/2024 1:58 PM ROOFING APPRENTICE) Anatomical Region Laterality Modality Head and Neck N/A Computed Tomogra phy 07/07/2024 4:03 PM ROOFING APPRENTICE Impressions 07/07/2024 5:00 PM ROOFING APPRENTICE 16 mm lesion along the inferior aspect of the left thyroid with imaging findings consistent with a parathyroid adenoma. Dictated by: Mona Villar M.D. The radiology attending physician has personally reviewed this study, and had reviewed and/or edited this written report and agrees with it. Electronically signed by: Rosalina Bee M.D. Narrative 07/07/2024 5:00 PM ROOFING APPRENTICE EXAMINATION: CT of the neck without and [...] Result * POCT creatinine (07/07/2024 1:42 PM ROOFING APPRENTICE) Creatinine POC 0.8 0.6 - 1.1 mg/dL Blood 07/07/2024 1:42 PM ROOFING APPRENTICE 07/07/2024 1:42 PM ROOFING APPRENTICE Dionisio Duran MD LAB POCT ORDERABLES - D EVICE Final Result Performing Organization Address City/State/[facility] Co de Phone Number [facility] Department [place] [address] from Last 3 Months Insurance [facility] [employer] Care Teams Inclusion Paraeducator Relationship Specialty Start Date End Date Carmella Gunderson MD PCP - General Family Medicine 01/28/24 Swati Hayward MD [address] [address] Referring Physician Internal Medicine 05/31/24
--- OUTSIDE RECORDS SUMMARY | 2024-08-22 05:16 | XMS_ITS | Encounter Summary ---
Author Organization [facility] Address [address] [place] [address] Phone Care Team Providers Care Production Technician Name Role Phone Carmella Gunderson MD Primary Care Provider + Swati Hayward MD Unavailable [phone] Reason for Visit * Reason Onset Date Comments Medical Question/Miscellaneous 06/26/2024 Encounter Details Date Type Department Care Team (Late st Contact Info) Description 06/26/2024 Telephone [facility] Surgery [address] [facility] Floor 8 [place] [address] Dionisio Duran MD [address] [place] [address] Medical Question/Miscellaneous Social History Tobacco Use Types Packs/Day Years Used Date Smoking Tobacco: Never Assessed Comments Unknown Sex and Gender Information Value Date Recorded Sex Assigned at Not on file Legal Sex Female 2:16 AM COLLEGE COUNSELOR Gender Identity Not on file Sexual Orientation Not on file documented as of this encounter Miscellaneous Notes * Telephone Encounter - Shyam Levy - 06/26/2024 11:27 AM CST Patient Query: Pre authorization. Was an attempt to transfer to the assigned clinical staff or backline? No. Reason for call?: Patient wanted to know if her ct has been authorized yet. Can we inform patient once it has been, as insurance are asking her to do this. Who is the caller: Patient. What is the best number for them to contact for a call back: [phone]. EGE COUNSELOR documented in this encounter Plan of Treatment Upcoming Encounters Date Type Department Care Team (Late st Contact Info) Description 09/08/2024 10:25 AM COLLEGE COUNSELOR Hospital Encounter [facility] ([facility]) [address] [place] [address] Dionisio Duran MD [address] [place] [address] 09/08/2024 10:25 AM COLLEGE COUNSELOR - 09/08/2024 1:00 PM COLLEGE COUNSELOR Surgery [facility] ([facility]) [address] [place] [address] Dionisio Duran MD [address] [place] [address] PARATHYROIDECTOMY Scheduled Procedures Name Priority Associated Diagnoses Date/Ti me PARATHYROIDECTOMY HPTH (hyperparathyroidism) ([facility]) 09/08/2024 10:25 AM COLLEGE COUNSELOR EXPLORATION PARATHYROID HPTH (hyperparathyroidism) ([facility]) 09/08/2024 10:25 AM COLLEGE COUNSELOR documented as of this encounter Visit Diagnoses Not on filedocumented in this encounter Care Teams Production Technician Relationship Specialty Start Date End Date Carmella Gunderson MD PCP - General Family Medicine 01/28/24 Swati Hayward MD [address] [place] [address] Referring Physician Internal Medicine 05/31/24 documented as of this encounter
--- OUTSIDE RECORDS SUMMARY | 2024-08-22 05:16 | XMS_ITS | Encounter Summary ---
Author Organization [facility] Address [address] [place] [address] Phone Care Team Providers Care Cardiology Technician Name Role Phone Carmella Gunderson MD Primary Care Provider + Swati Hayward MD Unavailable [phone] Encounter Details Date Type Department Care Team (Late Contact Info) Description 07/13/2024 Documentation [facility] Surgery [address] [facility] Floor [address] [place] [address] Katarzyna Merchant RN Social History Tobacco Use Types Packs/Day Years Used Date Smoking Tobacco: Never Passive Smoke Exposure: Never Comments Unknown Sex and Gender Information Value Date Recorded Sex Assigned at Not on file Legal Sex Female 2:16 AM SENIOR TEST ENGINEER Gender Identity Not on file Sexual Orientation Not on file documented as of this encounter Progress Notes * Katarzyna Merchant RN - 07/13/2024 2:48 PM CST Surgery Letter printed for pt. OR TEST ENGINEER documented in this encounter Plan of Treatment Upcoming Encounters Date Type Department Care Team (Late Contact Info) Description 09/08/2024 10:25 AM SENIOR TEST ENGINEER Hospital Encounter [facility] ([facility]) [address] [place] [address] Dionisio Duran MD [address] [place] [address] 09/08/2024 10:25 AM SENIOR TEST ENGINEER - 09/08/2024 1:00 PM SENIOR TEST ENGINEER Surgery [facility] ([facility]) [address] [place] [address] Dionisio Duran MD [address] [place] [address] PARATHYROIDECTOMY Scheduled Procedures Name Priority Associated Diagnoses Date/Ti me PARATHYROIDECTOMY HPTH (hyperparathyroidism) ([facility]) 09/08/2024 10:25 AM SENIOR TEST ENGINEER EXPLORATION PARATHYROID HPTH (hyperparathyroidism) ([facility]) 09/08/2024 10:25 AM SENIOR TEST ENGINEER documented as of this encounter Visit Diagnoses Not on filedocumented in this encounter Care Teams Cardiology Technician Relationship Specialty Start Date End Date Carmella Gunderson MD PCP - General Family Medicine 01/28/24 Swati Hayward MD [address] [place] [address] Referring Physician Internal Medicine 05/31/24 documented as of this encounter
--- OUTSIDE RECORDS SUMMARY | 2024-08-22 05:16 | XMS_ITS | Encounter Summary ---
Author Organization [facility] Address [address] [place] [address] Care Team Providers Care Help Desk Internship Name Role Phone Carmella Gunderson MD Primary Care Provider + Reason for Referral * MRI/CAT/PET Scan (Routine) - Closed Specialty Diagnoses / Procedures Referred By Marina sands Referred To Contact Radiology Diagnoses Other chest pain Procedures CTA Heart and Coronary Arteries W Morphology when Performed Bernardo Carrillo DO [address] [address] Phone: tel: fax: [address] [address] Referral ID Status Reason Start Date Expiration Date Visits Re quested Visits Authorized [id number] Closed 01/12/2024 02/10/2025 1 1 Reason for Visit * MRI/CAT/PET Scan (Routine) - Closed Specialty Diagnoses / Procedures Referred By Marina sands Referred To Contact Radiology Diagnoses Other chest pain Procedures CTA Heart and Coronary Arteries W Morphology when Performed Bernardo Carrillo DO [address] [address] Phone: tel: fax: [address] [address] Referral ID Status Reason Start Date Expiration Date Visits Re quested Visits Authorized [id number] Closed 01/12/2024 02/10/2025 1 1 Encounter Details Date Type Department Care Team (Latest Contact Info) Description 02/08/2024 1:04 PM CDT - 02/08/2024 11:59 PM CDT Hospital Encounter [facility] ([facility]) [address] [place] [address] Other chest pain Discharge Disposition: Discharge to home or self care Social History Tobacco Use Types Packs/Day Years Used Date Smoking Tobacco: Never Assessed Comments Unknown Sex and Gender Information Value Date Recorded Sex Assigned at Not on file Legal Sex Female 2:16 AM CORPORATE ACCOUNTING MANAGER Gender Identity Not on file Sexual Orientation Not on file documented as of this encounter Last Filed Vital Signs Vital Sign Reading Time Taken Comments Blood Pressure 138/79 02/08/2024 1:45 PM CDT Pulse 71 02/08/2024 1:45 PM CDT Temperature - - Respiratory Rate - - Oxygen Saturation - - Inhaled Oxygen Concentration - - Weight - - Height - - Body Mass Index - - documented in this encounter Discharge Instructions * Discharge Instructions* Pushpa Vaca RN - 02/08/2024 1:47 PM CDT What is a CTA of the heart? CTA uses a CAT scan machine and an injection of contrast (radiology dye) into your blood vessels tohelp see blood vessel diseases or conditions such as abnormal blood vessels or blockages. You may have been given 0.8mg Nitroglycerin during the study today. A headache will be the most common side effect of Nitroglycerin administration. You should not experience any other side effects from these medications. You may take prescribed medication as normal. documented in this encounter Discharge Disposition Disposition Code Departure Means Destination Discharge to home or self care documented in this encounter Plan of Treatment Upcoming Encounters Date Type Department Care Team (Late st Contact Info) Description 09/08/2024 10:25 AM CORPORATE ACCOUNTING MANAGER Hospital Encounter [facility] ([facility]) [address] [place] [address] Dionisio Duran MD [address] [place] [address] 09/08/2024 10:25 AM CORPORATE ACCOUNTING MANAGER - 09/08/2024 1:00 PM CORPORATE ACCOUNTING MANAGER Surgery [facility]) [address] [place] [address] Dionisio Duran MD [address] [place] [address] PARATHYROIDECTOMY Scheduled Procedures Name Priority Associated Diagnoses Date/Ti me PARATHYROIDECTOMY HPTH (hyperparathyroidism) ([facility]) 09/08/2024 10:25 AM CORPORATE ACCOUNTING MANAGER EXPLORATION PARATHYROID HPTH (hyperparathyroidism) ([facility]) 09/08/2024 10:25 AM CORPORATE ACCOUNTING MANAGER documented as of this encounter Procedures Procedure Name Priority Date/Time Associated Diagnosis Comments CT HEART MORPHOLOGY AND CORONARY ARTERIES W CONTRAST Schedule Routine, Read Routine (OP Routine) 02/08/2024 2:45 PM CDT Other chest pain POCT CREATININE - DEVICE Routine 02/08/2024 1:46 PM CDT documented in this encounter Results * CTA Heart and Coronary Arteries W Morphology when Performed (02/08/2024 2:45 PM CDT) Anatomical Region Laterality Modality Chest N/A Computed Tomogra phy 02/08/2024 3:03 PM CDT Impressions 02/08/2024 3:03 PM CDT 1. ??Normal coronary CTA. No anomalous coronary artery, dissection, or coronary artery disease. Calcium score is 0. 2. 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 3. ??Small hiatal hernia. Dictated by: Yuliana Garcia M.D. The radiology attending physician has personally reviewed this study, and had reviewed and/or edited this written report and agrees with it. Electronically signed by: Alonzo Trotter M.D. Narrative 02/08/2024 3:03 PM CDT EXAMINATION: CORONARY CT ANGIOGRAM HISTORY: Atypical chest pain. TECHNIQUE: CT angiography of the coronary arteries was performed after the administration of 94 mL of Optiray 350. Images were also obtained precontrast for the purposes of calcium scoring. Prior to the examination, 0 mg of metoprolol was administered intravenously and 0.8 mg nitroglycerin was administered sublingually. The patient's heart rate at the time of the examination was 71 beats per minute. Images were transferred to a 3D workstation for additional post-processing. FINDINGS: The coronary arteries are codominant. There is no anomalous coronary origin or course. No focal caliber change or irregularity to suggest coronary artery dissection. Early branching of the first diagonal branch. 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 Right coronary system: No significant calcified or noncalcified atherosclerotic disease. Left coronary system: No significant calcified or noncalcified atherosclerotic disease. The calculated calcium score is 0. Other findings: Mild dependent atelectasis. Normal heart size without pericardial effusion. Small hiatal hernia. No suspicious osseous lesion. Procedure Note Alonzo Trotter MD PhD - 02/08/2024 EXAMINATION: CORONARY CT ANGIOGRAM HISTORY: Atypical chest pain. TECHNIQUE: CT angiography of the coronary arteries was performed after the administration of 94 mL of Optiray 350. Images were also obtained precontrast for the purposes of calcium scoring. Prior to the examination, 0 mg of metoprolol was administered intravenously and 0.8 mg nitroglycerin was administered sublingually. The patient's heart rate at the time of the examination was 71 beats per minute. Images were transferred to a 3D workstation for additional post-processing. FINDINGS: The coronary arteries are codominant. There is no anomalous coronary origin or course. No focal caliber change or irregularity to suggest coronary artery dissection. Early branching of the first diagonal branch. 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 Right coronary system: No significant calcified or noncalcified atherosclerotic disease. Left coronary system: No significant calcified or noncalcified atherosclerotic disease. The calculated calcium score is 0. Other findings: Mild dependent atelectasis. Normal heart size without pericardial effusion. Small hiatal hernia. No suspicious osseous lesion. IMPRESSION: 1. Normal coronary CTA. No anomalous coronary artery, dissection, or coronary artery disease. Calcium score is 0. 2. 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 3. Small hiatal hernia. Dictated by: Yuliana Garcia M.D. The radiology attending physician has personally reviewed this study, and had reviewed and/or edited this written report and agrees with it. Electronically signed by: Alonzo Trotter M.D. Bernardo Carrillo DO IMG CT PROCEDURES Final Resu lt * POCT creatinine (02/08/2024 1:46 PM CDT) Creatinine POC 0.8 0.6 - 1.1 mg/dL Blood 02/08/2024 1:46 PM CDT 02/08/2024 1:46 PM CDT Bernardo Carrillo DO LAB POCT ORDERABLES - DEVICE Final Result [facility] Department [place] [address] documented in this encounter Visit Diagnoses Diagnosis Other chest pain HPTH (hyperparathyroidism) (HCC) Hyperparathyroidism, unspecified documented in this encounter Administered Medications Inactive Administered Medications - up to 3 most recent administrations Medication Order MAR Action Action Date Dose Rate Site ioversoL (OPTIRAY 350) syringe 100 mL 100 mL, intravenous, Once in imaging, contrast, Starting on Wed02/08/24 at 1439, For 1 dose Contrast Given 02/08/2024 2:41 PM CDT 94 mL nitroglycerin (NITROSTAT) sublingual tablet 0.8 mg 0.8 mg, sublingual, Once as needed, other, coronary artery vasodilation, Starting on Wed02/08/24 at 1329, For 1 hour, Administer during CT procedure only. Administer when blood pressure is greater than 100/60 and patient has not taken any vasodilator medication or has critical aortic stenosis. Given by Other 02/08/2024 2:35 PM CDT 0.8 mg documented in this encounter Orders Medications Ordered That Dewayne ht Not Have Been Administered Count Last Ordered Date First Ordered Date metoprolol (LOPRESSOR) injection 10 mg 1 documented in this encounter Care Teams Help Desk Internship Relationship Specialty Start Date End Date Carmella Gunderson MD PCP - General Family Medicine 01/28/24 documented as of this encounter
--- OUTSIDE RECORDS SUMMARY | 2024-08-22 05:16 | XMS_ITS | Encounter Summary ---
Author Organization [facility] Healthcare Address [address] [place] [address] Care Team Providers Care Stemming Machine Operator Name Role Phone Carmella Gunderson MD Primary Care Provider + Swati Hayward MD Unavailable [phone] Reason for Referral * MRI/CAT/PET Scan (Routine) - Closed Specialty Diagnoses / Procedures Referred By Babakac t Referred To Contact Radiology Diagnoses Primary hyperparathyroidism (HCC) Procedures CT 4D Parathyroid Dionisio Duran MD [address] [place] [address] Phone: tel: fax: [address] [phone] Referral ID Status Reason Start Date Expiration Date Visits Re quested Visits Authorized [id number] Closed 06/01/2024 07/01/2025 1 1 TURNER Reason for Visit * MRI/CAT/PET Scan (Routine) - Closed Specialty Diagnoses / Procedures Referred By Contac t Referred To Contact Radiology Diagnoses Primary hyperparathyroidism (HCC) Procedures CT 4D Parathyroid Dionisio Duran MD [address] [place] [address] Phone: tel: fax: [address] [phone] Referral ID Status Reason Start Date Expiration Date Visits Re quested Visits Authorized [id number] Closed 06/01/2024 07/01/2025 1 1 Encounter Details Date Type Department Care Team (Latest Contact Info) Description 07/07/2024 1:19 PM CUFF TURNER - 07/07/2024 11:59 PM [facility] TURNER Hospital Encounter [facility] ([facility]) [address] [place] [id number] Primary hyperparathyroidism (HCC) Discharge Disposition: Discharge to home or self care Social History Tobacco Use Types Packs/Day Years Used Date Smoking Tobacco: Never Assessed Comments Unknown Sex and Gender Information Value Date Recorded Sex Assigned at Not on file Legal Sex Female 2:16 AM CUFF TURNER Gender Identity Not on file Sexual Orientation Not on file documented as of this encounter Medications at Time of Discharge metoprolol tartrate (LOPRESSOR) 25 mg immediate release tabletIndications:hype rtension Take 1 tablet (25 mg total) by mouth 2 (two) times a day 06/13/2024 omeprazole (PriLOSEC) 40 mg capsuleIndications:Sym ptomatic Gastroesophageal Reflux Disease Take 1 capsule (40 mg total) by mouth every morning 04/05/2024 documented as of this encounter Discharge Disposition Disposition Code Departure Means Destination Discharge to home or self care documented in this encounter Plan of Treatment Upcoming Encounters Date Type Department Care Team (Late st Contact Info) Description 09/08/2024 10:25 AM [facility] Hospital Encounter [facility] Operating Room [facility] ([facility]) [address] [place] [id number] Dionisio Duran MD [address] [place] [address] 09/08/2024 10:25 AM CU[facility] TURNER - 09/08/2024 1:00 PM [facility] Surgery [facility] Operating Room [facility] ([facility]) [address] [place] [id number] Dionisio Duran MD [address] [place] [address] PARATHYROIDECTOMY Scheduled Procedures Name Priority Associated Diagnoses Date/Ti me PARATHYROIDECTOMY HPTH (hyperparathyroidism) ([facility]) 09/08/2024 10:25 AM CUFF TURNER EXPLORATION PARATHYROID HPTH (hyperparathyroidism) ([facility]) 09/08/2024 10:25 AM CUFF TURNER documented as of this encounter Procedures Procedure Name Priority Date/Time Associated Diagnosis Comments CT 4D PARATHYROID Schedule Routine, Read Routine (OP Routine) 07/07/2024 1:58 PM CUFF TURNER Primary hyperparathyroidism (HCC) POCT CREATININE - DEVICE Routine 07/07/2024 1:42 PM CUFF TURNER documented in this encounter Results * CT 4D Parathyroid (07/07/2024 1:58 PM CUFF TURNER) Anatomical Region Laterality Modality Head and Neck N/A Computed Tomogra phy 07/07/2024 4:03 PM CUFF TURNER Impressions 07/07/2024 5:00 PM CUFF TURNER 16 mm lesion along the inferior aspect of the left thyroid with imaging findings consistent with a parathyroid adenoma. Dictated by: Mona Villar M.D. The radiology attending physician has personally reviewed this study, and had reviewed and/or edited this written report and agrees with it. Electronically signed by: Rosalina Bee M.D. Narrative 07/07/2024 5:00 PM CUFF TURNER EXAMINATION: CT of the neck without and [...] it. Electronically signed by: Rosalina Bee M.D. us Dionisio Duran MD IMG CT PROCEDURES Final Result * POCT creatinine (07/07/2024 1:42 PM CUFF TURNER) Creatinine POC 0.8 0.6 - 1.1 mg/dL Blood 07/07/2024 1:42 PM CUFF TURNER 07/07/2024 1:42 PM CUFF TURNER Dionisio Duran MD LAB POCT ORDERABLES - D SOBIA Final Result [facility] [place] [address] documented in this encounter Visit Diagnoses Diagnosis Primary hyperparathyroidism (HCC) Primary hyperparathyroidism HPTH (hyperparathyroidism) (HCC) Hyperparathyroidism, unspecified documented in this encounter Administered Medications Inactive Administered Medications - up to 3 most recent administrations Medication Order MAR Action Action Date Dose Rate Site ioversoL (OPTIRAY 350) syringe 125 mL 125 mL, intravenous, Once in imaging, contrast, Starting on Wed07/07/24 at 1348, For 1 dose Contrast Given 07/07/2024 1:52 PM CUFF TURNER 125 mL documented in this encounter Orders Medications Ordered That Dewayne ht Not Have Been Administered Count Last Ordered Date First Ordered Date ioversoL (OPTIRAY 350) syringe 125 mL 1 documented in this encounter Care Teams Stemming Machine Operator Relationship Specialty Start Date End Date Carmella Gunderson MD PCP - General Family Medicine 01/28/24 Swati Hayward MD [address] [place] [id number] Referring Physician Internal Medicine 05/31/24 documented as of this encounter
== END 2024-08-15 07:29 | disposition home or self-care (01) ==
LOC: ANHIMG 07:29
PROVIDERS: PCP Family Medicine; Visit Provider Family Medicine
DX: Z12.31 Encounter for screening mammogram for malignant neoplasm of breast (principal)
CPT/HCPCS: 77063; 77067

== ENCOUNTER 2025-08-21 07:55 | Outpatient (CLI) | payer OTHER, SELFPAY ==
--- NOTE | ~2025-08-21 | MM_ITS ---
EXAMINATION: MM screening emir BI w linnea HISTORY: Screening. TECHNIQUE: Craniocaudal and mediolateral oblique 3-D tomosynthesis images were obtained and synthetic 2-D images were generated. CAD analysis was submitted and interpreted. COMPARISON: 2023, 2022, and 2021 BREAST PARENCHYMAL COMPOSITION: Not Dense: There are scattered areas of fibroglandular tissue. FINDINGS: There are findings consistent with the known breast cysts. No suspicious masses are seen. There are no suspicious calcifications. No unexplained architectural distortion is seen. There are no skin or nipple abnormalities identified. There is no adenopathy seen on the images submitted. IMPRESSION: No mammographic evidence to suggest malignancy is seen. The patient may return to screening mammography as per ACR guidelines. BI-RADS 2 - Benign. Reviewed, dictated and finalized at location C. PUMP ATTENDANT
--- OUTSIDE RECORDS SUMMARY | 2025-08-21 07:59 | XMS_ITS | Clinical Summary ---
Author Organization [facility] Address [address] [place] [address] Care Team Providers Care Railroad Conductor Name Role Phone Carmella Gunderson MD Primary Care Provider + Swati Hayward MD Unavailable [phone] Allergies Active Allergy Reactions Criticality Noted Date Comments Erythromycin Nausea & Vomiting Low 08/17/2024 Latex Swelling,Rash Medium 02/08/2024 Penicillins Hives High Reaction: Hives, Medications omeprazole (PriLOSEC) 40 mg capsule Take 1 capsule (40 mg total) by mouth every morning 4 Active metoprolol tartrate (LOPRESSOR) 25 mg immediate release tablet Take 1 tablet (25 mg total) by mouth 2 (two) times a day 4 Active aspirin 81 mg chewable tablet Take 1 tablet (81 mg total) by mouth nightly Active fexofenadine (KALYANI) 180 mg tablet Take 1 tablet (180 mg total) by mouth every morning Active atorvastatin (LIPITOR) 10 mg tablet Take 1 tablet (10 mg total) by mouth every evening Active cholecalciferol (VITAMIN D-3) 2000 unit tablet Take 1 tablet (2,000 Units total) by mouth every morning Active polyvinyl alcohol-povidone (REFRESH CLASSIC) 1.4-0.6 % dropperette Administer 1 drop into both eyes daily as needed for dry eyes Active calcium carbonate (OS-CHU) 1,250 mg (500 mg elemental) tabletIndication s:hypocalcemia Take 1 tablet (1,250 mg total) by mouth 3 (three) times a day 90 tablet 11 5 09/08/19 26 Active acetaminophen 500 mg capsuleIndicatio ns:Pain Take 2 capsules (1,000 mg total) by mouth every 6 (six) hours 30 tablet 5 Active Active Problems Problem Noted Date Diagnosed Date HPTH (hyperparathyroidism) 07/13/2024 Obesity 01/28/2016 Fatigue 09/17/2015 Ventricular premature beats 09/17/2015 Primary hyperparathyroidism 09/17/2015 Hypercalcemia 09/17/2015 Immunizations Immunization Administration Dates Next Due Influenza, Quadrivalent, Rosalinda [...] TOOTH EXTRACTION 1960s, baby tooth removal, multiple Medical History Medical History Date Comments Motion sickness Family History Medical History Relation Name Comments [...] cancer Paternal Grandfather Skin cancer Paternal Grandfather Anesthesia problems Neg Hx Malig Hypertension Neg Hx Malig Hyperthermia Neg Hx Pseudochol deficiency Neg Hx Relation Name Status Comments Father Father's Sister Maternal Grandfather Maternal Grandmother Mother Paternal Grandfather Social History Tobacco Use Types Packs/Day Years Used Date Smoking Tobacco: Former Cigarettes 1 8 1 1983 Passive Smoke Exposure: Past Smokeless Tobacco: Never Tobacco Cessation:Counseling Given: Not Answered AUDIT-C Answer Date Recorded Q1: How often do you have a drink containing alcohol? Never 09/08/2024 Q2: How many drinks containi ng alcohol do you have on a typical day when you are drinking? Patient does not drink Q3: How often do you have si x or more drinks on one occasion? Never 09/08/2024 Personal Safety Answer Date Recorded Have you ever been in or are you currently in a harmful physical or emotional relationship or is someone making you feel afraid or unsafe? Denies 09/08/2024 Comments No Sex and Gender Information Value Date Recorded Sex Assigned at Not on file Legal Sex Female 2:16 AM KALSOMINER Gender Identity Not on file Sexual Orientation Not on file Last Filed Vital Signs Vital Sign Reading Time Taken Comments Blood Pressure 111/77 09/25/2024 1:51 PM KALSOMINER Pulse 90 09/25/2024 1:51 PM KALSOMINER Temperature 36.3 C (97.3 F) 09/25/2024 1:51 PM KALSOMINER Respiratory Rate 16 09/25/2024 1:51 PM KALSOMINER Oxygen Saturation 96% 09/25/2024 1:51 PM KALSOMINER Inhaled Oxygen Concentration - - Weight 90.9 kg (200 lb 6.4 oz) 09/25/2024 1:51 P M KALSOMINER Height 162.6 cm (5' 4) 09/08/2024 11:35 AM KALSOMINER Body Mass Index 34.4 09/08/2024 11:35 AM KALSOMINER Plan of Treatment Health Maintenance Due Date Last Done Comments Breast Cancer Screening-Mammogram 1961 Cervical Cancer Screening 1961 Colon Cancer Screening-Colonoscopy 1961 Depression Screening 1961 Hepatitis C Screening 1961 Hepatitis B Screening 1979 Regular Well Visit/Exam 18-64 1979 Covid-19 Vaccine ( season) 2025 06/14/2023, 06/26/2022, 08/04/2021, Additional history exists Influenza Vaccine (#1) 2025 , 06/26/2022, 06/10/2021, Additional history exists DTaP/Tdap/Td Vaccine (2 - Td or Tdap) 09/14/2033 09/14/2023 Zoster Vaccine Completed 04/20/2022, 11/04/2021 Pneumococcal vaccine <65 Aged Out No longer eligible based on patient's age to complete this topic Insurance CIG [employer] Advance Directives For more information, please contact: [phone] * Full Code (Latest Code Status on File) Date Activated Date Inactivated Comments 09/08/2024 11:42 AM 09/08/2024 10:01 PM Care Teams Railroad Conductor Relationship Specialty Start Date End Date Carmella Gunderson MD PCP - General Family Medicine 01/28/24 Swati Hayward MD [address] [address] Referring Physician Internal Medicine 05/31/24
== END 2025-08-21 07:56 | disposition home or self-care (01) ==
LOC: ANHFOHIMG 07:57
PROVIDERS: PCP Family Medicine; Visit Provider Family Medicine
DX: Z12.31 Encounter for screening mammogram for malignant neoplasm of breast (principal)
CPT/HCPCS: 77063; 77067